=== PATIENT | male | born 1955 | race Caucasian/White ===

== ENCOUNTER 2021-08-01 19:44 | Emergency (ER) | payer MEDICARE ==
--- NOTE | 2021-08-01 23:43 | EDM.PDOC ---
ED HPI GENERAL MEDICAL PROBLEM - General Chief Complaint: Respiratory Problem Stated Complaint: COVID POSITIVE, COUGH, Time Seen by Provider: 08/01/21 22:27 Source of Information: Reports: Patient History Limitations: Reports: No Limitations - History of Present Illness INITIAL COMMENTS - FREE TEXT/NARRATIVE: But is a 65-year-old male presenting to the ED with concerns that he may have COVID-19. The patient did receive them a during a vaccine in December and January 2021. He received Moderna vaccination. He started having symptoms including headache, body aches, nasal congestion, cough and sore throat, and worsening shortness of breath over the last 3 to 4 days. He contacted his doctor who is in [place] who recommended that he get the Regeneron treatment for his COVID-19 if he is positive. The patient is susceptible to recurrent pneumonias and has a history of hyperlipidemia, hypertension, chronic anticoagulation with warfarin. We have no access to his medical records to be able to determine if there is other underlying history. Patient denies being a smoker. He has not lost his sense of taste or smell. He did run a fever earlier today but that has since subsided. The patient reports that several days ago he fell striking the left chest causing several ribs to become fractured. He has been taking Percocet to manage his pain. He was seen earlier today at the [facility] walk-in clinic where they did a Covid swab and a chest x-ray. They told him that his chest x-ray looked "cruddy". He does not know the results of the COVID-19 test. He is anxious to find out so that he can get the Regeneron as soon as possible as recommended by his doctor in [place]. - Related Data Allergies Allergy/AdvReac Type Severity Reaction Status Date / Time No Known Allergies Allergy Verified 08/01/21 20:29 Home Meds: Home Meds Azithromycin [Zithromax] 250 mg PO DAILY 08/01/21 [History] Dextroamphetamine/Amphetamine [Dextroamp-Amphet ER 20 mg Cap] 20 mg PO DAILY 08/01/21 [History] NIFEdipine [Nifedipine ER] 30 mg PO DAILY 08/01/21 [History] Rosuvastatin [Crestor] 10 mg PO DAILY 08/01/21 [History] Sertraline [Zoloft] 100 mg PO DAILY 08/01/21 [History] Warfarin [Coumadin] 3 mg PO DAILY 08/01/21 [History] oxyCODONE HCl/Acetaminophen [Oxycodone-Acetaminophen 5-325] 1 each PO Q6H 08/01 [History] Past Medical History Cardiovascular History: Reports: High Cholesterol Other Cardiovascular History: PE Respiratory History: Reports: PE, Pneumonia, Recurrent Musculoskeletal History: Reports: Arthritis, Fracture Psychiatric History: Reports: Depression Oncologic (Cancer) History: Reports: Basal Cell Carcinoma, Malignant Melanoma, Squamous Cell Carcinoma - Infectious Disease History Infectious Disease History: Reports: Chicken Pox, Measles, Mumps Social & Family History - Tobacco Use Tobacco Use Status *Q: Never Tobacco User - Caffeine Use Caffeine Use: Reports: Coffee - Alcohol Use Days Per Week of Alcohol Use: 7 Number of Drinks Per Day: 3 Total Drinks Per Week: 21 - Recreational Drug Use Recreational Drug Use: No ED ROS GENERAL - Review of Systems Review Of Systems: See Below Constitutional: Reports: Fever, Chills, Malaise, Fatigue HEENT: Reports: Rhinitis, Sinus Problem, Throat Pain Respiratory: Reports: Shortness of Breath, Cough, Sputum Cardiovascular: Reports: Dyspnea on Exertion Endocrine: Reports: No Symptoms GI/Abdominal: Reports: Nausea : Reports: No Symptoms Musculoskeletal: Reports: Muscle Pain (Body aches) Skin: Reports: No Symptoms Neurological: Reports: Headache Psychiatric: Reports: No Symptoms Hematologic/Lymphatic: Reports: No Symptoms Immunologic: Reports: No Symptoms ED EXAM, GENERAL - Physical Exam Exam: See Below Exam Limited By: No Limitations General Appearance: Alert, Anxious, Mild Distress Eye Exam: Left Eye: EOMI, PERRL Throat/Mouth: Normal Inspection, Normal Oropharynx, Normal Voice, No Airway Compromise Head: Normocephalic Neck: Normal Inspection, Supple, Non-Tender Respiratory/Chest: Decreased Breath Sounds (Mildly diminished breath sounds in the base secondary to splinting), Rhonchi (Scattered rhonchi bilaterally), Wheezing (Scant inspiratory and expiratory wheezes), Splinting, Other (Tenderness over the left lateral lower ribs without evidence for bruising) Cardiovascular: Normal Peripheral Pulses, Regular Rate, Rhythm, No Murmur Peripheral Pulses: 2+: Radial (L), Radial (R) GI/Abdominal: Normal Bowel Sounds, Soft, Non-Tender Extremities: Normal Inspection Neurological: Alert, Oriented, Normal Cognition, No Motor/Sensory Deficits Psychiatric: Anxious Skin Exam: Warm, Dry, Intact, Normal Color Course - Vital Signs Last Recorded V/S: Last Vital Signs Temp 35.9 C L 08/01/21 20:38 Pulse 65 08/01/21 23:26 Resp 16 08/01/21 23:26 BP 130/65 08/01/21 23:26 Pulse Ox 98 08/01/21 23:26 - Orders/Labs/Meds Orders: Active Orders 24 hr Category Date Time Status Chest 1V Frontal [CR] Stat Exams 08/01/21 22:41 Taken PROCALCITONIN [CHEM] Stat Lab 08/01/21 22:55 Received Labs: Laboratory Tests 08/01/21 08/01/21 08/01/21 Range/Units 22:00 22:55 22:55 WBC 7.6 (4.5-11.0) K/uL RBC 4.47 (4.30-5.90) M/uL Hgb 13.4 (12.0-15.0) g/dL Hct 40.7 (40.0-54.0) % MCV 91 (80-98) fL MCH 30 (27-31) pg MCHC 33 (32-36) % Plt Count 133 L (150-400) K/uL Neut % (Auto) 61.6 (36-66) % Lymph % (Auto) 18.9 L (24-44) % Castro % (Auto) 15.9 H (2-6) % Eos % (Auto) 2.9 (2-4) % Baso % (Auto) 0.7 (0-1) % D-Dimer, Quantitative (0.0-500.0) ng/mL Sodium 137 L (140-148) mmol/L Potassium 4.0 (3.6-5.2) mmol/L Chloride 99 L (100-108) mmol/L Carbon Dioxide 28 (21-32) mmol/L Anion Gap 14.0 (5.0-14.0) mmol/L BUN 14 (7-18) mg/dL Creatinine 1.0 (0.8-1.3) mg/dL Est Cr Clr Drug Dosing 78.68 mL/min Estimated GFR (MDRD) > 60 (>60) Glucose 98 (74-106) mg/dL Lactic Acid (0.4-2.0) mmol/L Calcium 8.4 L (8.5-10.1) mg/dL Ferritin 161 (8-388) ng/ml Total Bilirubin 0.7 (0.2-1.0) mg/dL AST 32 (15-37) U/L ALT 29 (12-78) U/L Alkaline Phosphatase 94 (46-116) U/L Lactate Dehydrogenase 150 (85-227) U/L C-Reactive Protein 3.08 H (0.0-0.3) mg/dL Total Protein 6.7 (6.4-8.2) g/dL Albumin 3.6 (3.4-5.0) g/dL Globulin 3.1 (2.3-3.5) g/dL Albumin/Globulin Ratio 1.2 (1.2-2.2) SARS-CoV-2 RNA (JOSE) Positive H (NEGATIVE) 08/01/21 08/01/21 Range/Units 22:55 22:55 WBC (4.5-11.0) K/uL RBC (4.30-5.90) M/uL Hgb (12.0-15.0) g/dL Hct (40.0-54.0) % MCV (80-98) fL MCH (27-31) pg MCHC (32-36) % Plt Count (150-400) K/uL Neut % (Auto) (36-66) % Lymph % (Auto) (24-44) % Castro % (Auto) (2-6) % Eos % (Auto) (2-4) % Baso % (Auto) (0-1) % D-Dimer, Quantitative 660.48 H (0.0-500.0) ng/mL Sodium (140-148) mmol/L Potassium (3.6-5.2) mmol/L Chloride (100-108) mmol/L Carbon Dioxide (21-32) mmol/L Anion Gap (5.0-14.0) mmol/L BUN (7-18) mg/dL Creatinine (0.8-1.3) mg/dL Est Cr Clr Drug Dosing mL/min Estimated GFR (MDRD) (>60) Glucose (74-106) mg/dL Lactic Acid 0.9 (0.4-2.0) mmol/L Calcium (8.5-10.1) mg/dL Ferritin (8-388) ng/ml Total Bilirubin (0.2-1.0) mg/dL AST (15-37) U/L ALT (12-78) U/L Alkaline Phosphatase (46-116) U/L Lactate Dehydrogenase (85-227) U/L C-Reactive Protein (0.0-0.3) mg/dL Total Protein (6.4-8.2) g/dL Albumin (3.4-5.0) g/dL Globulin (2.3-3.5) g/dL Albumin/Globulin Ratio (1.2-2.2) SARS-CoV-2 RNA (JOSE) (NEGATIVE) - Radiology Interpretation Free Text/Narrative:: I reviewed the portable x-ray of the chest that demonstrates scattered fluffy infiltrates consistent with Covid lung. There is no area of consolidation. There does appear to be a rib fracture on the left lateral eighth rib. There is splinted respirations with elevation of the diaphragm on the imaging. - Re-Assessments/Exams Free Text/Narrative Re-Assessment/Exam: 08/01/21 23:38 I reviewed bloods labs showing a normal leukocyte count at 7.6, hemoglobin 13.4, hematocrit of 40.7 and platelet count of 133,000. He is positive for COVID-19. His chest x-ray shows diffuse scattered infiltrates consistent with Covid lung. His vitals are stable and he was remaining above 90 % on room air so it does not appear that he requires hospitalization at this time. He is very interested in getting the Regeneron infusion so I have ordered this for him for tomorrow. We do have doses in-house to be able to do this tomorrow. 08/02/21 00:00 the comprehensive metabolic panel is essentially normal with a sodium 137, potassium 4.0, chloride 99, bicarbonate of 28, BUN of 14 with a c reatinine 1.0 and a glucose of 98. The AST and ALT are normal. Lactic acid is 0.9. D-dimer is elevated at 660. Ferritin is 161. LDH is 150 and C-reactive protein is modestly elevated at 3.0. This is all consistent with acute COVID- 19. I have put through the request for the Regeneron for the patient to receive it tomorrow. At this time, he suitable for discharge home. He should socially isolate to prevent further spread. Departure - Departure Time of Disposition: 00:01 Disposition: Home, Self-Care 01 Clinical Impression: COVID-19, Pneumonia due to COVID-19 virus - Discharge Information Instructions: COVID-19: What to Do If You Are Sick- [facility] (01/08/2021), COVID-19: How to Protect Yourself and Others - [facility] Referrals: PCP,None [Primary Care Provider] - Forms: ED Department Discharge Care Plan Goals: I have put short order in for the Regeneron monoclonal therapy. You will be contacted by somebody in the morning to schedule the time to return to receive that. They do that in room 14 in the ER. They will likely have you come into the ambulance bay to come into the ER to limit of COVID-19 exposure to others. Sepsis Event Note (ED) - Evaluation Sepsis Screening Result: No Definite Risk - Focused Exam Vital Signs: Vital Signs Temp Pulse Resp BP Pulse Ox 08/01/21 23:26 65 16 130/65 98 08/01/21 20:38 35.9 C L 83 16 129/67 98 08/01/21 20:21 35.9 C L 83 16 129/67 98 - Problem List & Annotations (1) COVID-19 SNOMED Code(s): 555647911 Code(s): U07.1 - COVID-19 Status: Acute Priority: High Current Visit: Yes (2) Pneumonia due to COVID-19 virus SNOMED Code(s): 195490198234267181 Code(s): U07.1 - COVID-19; J12.82 - PNEUMONIA DUE TO CORONAVIRUS DISEASE 2019 Status: Acute Priority: High Current Visit: Yes - Problem List Review Problem List Initiated/Reviewed/Updated: Yes - My Orders Last 24 Hours: My Active Orders 08/01/21 22:41 Chest 1V Frontal [CR] Stat 08/01/21 22:55 PROCALCITONIN [CHEM] Stat - Assessment/Plan Last 24 Hours: My Active Orders 08/01/21 22:41 Chest 1V Frontal [CR] Stat 08/01/21 22:55 PROCALCITONIN [CHEM] Stat
--- NOTE | 2021-08-04 09:50 | CR ---
CHEST: Portable 08/01/2021 at 11:24 PM CLINICAL HISTORY:Covid COMPARISON:None FINDINGS: Heart size and pulmonary vascularity are normal. There is some patchy density in the right mid and lower lung field. There is some streaky density in the left lung base. There is elevation left hemidiaphragm which is likely chronic. IMPRESSION: Mild patchy density in the right lower lung field may represent pneumonia or pneumonitis Patchy and streaky left lower lobe density may be some atelectasis and scarring If clinically relevant upright two-view chest recommended. CHEST: Portable 08/02/2021 at 7:28 PM CLINICAL HISTORY:Covid19 COMPARISON:08/01/2021 FINDINGS: There is persistent patchy density in both lung bases. There is mild generalized increase in interstitial markings. Heart size and pulmonary vascularity are normal. IMPRESSION: Bilateral infiltrates with a slight increase in the right lower lobe since prior study. This is suspect for pneumonia or pneumonitis
== END 2021-08-02 00:16 | disposition home or self-care (01) ==
LOC: JP.ED 19:44
DX: U07.1 COVID-19 (principal); J12.82 Pneumonia due to coronavirus disease 2019; E78.00 Pure hypercholesterolemia, unspecified; M19.90 Unspecified osteoarthritis, unspecified site; Z86.711 Personal history of pulmonary embolism; Z79.01 Long term (current) use of anticoagulants; Z79.899 Other long term (current) drug therapy
CPT/HCPCS: 36415; 71045; 80053; 82728; 83605; 83615; 84145; 85025; 85379; 86140; 99284; U0002

== ENCOUNTER 2021-08-02 17:37 | Inpatient (IN) | payer MEDICARE ==
--- NOTE | 2021-08-02 18:54 | EDM.PDOC ---
ED HPI GENERAL MEDICAL PROBLEM - General Chief Complaint: Respiratory Problem Stated Complaint: MED[facility] Time Seen by Provider: 08/02/21 18:09 Source of Information: Reports: Patient, EMS History Limitations: Reports: No Limitations - History of Present Illness INITIAL COMMENTS - FREE TEXT/NARRATIVE: But is a 65-year-old male who presents to the ED via EMS for increasing shortness of breath, body aches, rib pain, and increased thirst. The patient was seen in the ER last night where he was diagnosed with COVID-19. Had a very significant work-up and was scheduled for Regeneron monoclonal therapy today which she received at 1400 hrs. today. He was discharged from the ED after receiving the monoclonal therapy feeling well and within an hour prior to arrival to the ED started experiencing increasing symptoms of his COVID-19. He arrives via EMS writhing around in pain. He does have a rib fracture on the left lower chest that occurred 3 days ago from an injury. His work-up yesterday showed mild scattered infiltrates consistent with Covid lung. The patient does have a significant underlying lung pathology with frequent recurrent pneumonias and is followed by a decaler in [place] where he typically resides. Patient is 94% SPO2 on room air. He is very anxious and tachypneic. Trunk Pain Score (Numeric/FACES): 6 - Related Data Allergies Allergy/AdvReac Type Severity Reaction Status Date / Time No Known Allergies Allergy Verified 08/02/21 18:55 Home Meds: Home Meds Azithromycin [Zithromax] 250 mg PO DAILY 08/01/21 [History] Dextroamphetamine/Amphetamine [Dextroamp-Amphet ER 20 mg Cap] 20 mg PO DAILY 08/01/21 [History] NIFEdipine [Nifedipine ER] 30 mg PO DAILY 08/01/21 [History] Rosuvastatin [Crestor] 10 mg PO DAILY 08/01/21 [History] Sertraline [Zoloft] 100 mg PO DAILY 08/01/21 [History] Warfarin [Coumadin] 3 mg PO DAILY 08/01/21 [History] oxyCODONE HCl/Acetaminophen [Oxycodone-Acetaminophen 5-325] 1 each PO Q6H 08/01/21 [History] Past Medical History Cardiovascular History: Reports: High Cholesterol Other Cardiovascular History: PE Respiratory History: Reports: PE, Pneumonia, Recurrent Musculoskeletal History: Reports: Arthritis, Fracture Psychiatric History: Reports: Depression Oncologic (Cancer) History: Reports: Basal Cell Carcinoma, Malignant Melanoma, Squamous Cell Carcinoma - Infectious Disease History Infectious Disease History: Reports: Chicken Pox, Measles, Mumps Social & Family History - Caffeine Use Caffeine Use: Reports: Coffee ED ROS GENERAL - Review of Systems Review Of Systems: See Below Constitutional: Reports: Fever, Chills, Malaise, Weakness, Fatigue, Diaphoresis HEENT: Reports: Throat Pain, Other (Dry mouth) Respiratory: Reports: Shortness of Breath (Increased since he received his monoclonal therapy), Cough, Sputum Cardiovascular: Reports: Chest Pain (Secondary to rib fracture on the left lower lateral chest) Endocrine: Reports: Fatigue GI/Abdominal: Reports: Anorexia, Decreased Appetite : Reports: No Symptoms Musculoskeletal: Reports: Muscle Pain (Generalized body aches) Skin: Reports: No Symptoms Neurological: Reports: Headache Psychiatric: Reports: Anxiety Hematologic/Lymphatic: Reports: No Symptoms Immunologic: Reports: No Symptoms ED EXAM, GENERAL - Physical Exam Exam: See Below Exam Limited By: No Limitations General Appearance: Alert, Anxious, Severe Distress Eye Exam: Bilateral Eye: EOMI, PERRL Nose: Nasal Swelling, Nasal Drainage, Clear Rhinorrhea Throat/Mouth: Normal Oropharynx, Normal Voice, No Airway Compromise Head: Normocephalic Neck: Normal Inspection, Supple. No: Lymphadenopathy (R), Lymphadenopathy (L) Respiratory/Chest: Rhonchi (Coarse rhonchi bilateral lungs. ), Accessory Muscle Use, Splinting (Splinting respirations with extreme tenderness to palpation over the left lower lateral chest.), Other (Tachypnea) Cardiovascular: Normal Peripheral Pulses, Regular Rate, Rhythm, No Murmur Peripheral Pulses: 2+: Radial (L), Radial (R) GI/Abdominal: Normal Bowel Sounds, Soft, Non-Tender Extremities: Normal Inspection, Normal Range of Motion, No Pedal Edema Neurological: Alert, Oriented, Normal Cognition, No Motor/Sensory Deficits Psychiatric: Anxious Skin Exam: Warm, Normal Color, Diaphoretic Course - Vital Signs Last Recorded V/S: Last Vital Signs Temp 36.4 C 08/02/21 18:57 Pulse 108 H 08/02/21 18:57 Resp 24 H 08/02/21 18:57 BP 137/72 08/02/21 18:57 Pulse Ox 89 L 08/02/21 18:57 - Orders/Labs/Meds Orders: Active Orders 24 hr Category Date Time Status Nurse Communication: Isolation [RC] ASDIRECTED Care 08/02/21 19:22 Active Nurse Communication: Isolation [RC] ASDIRECTED Care 08/02/21 19:24 Active Positioning, Patient [RC] ASDIRECTED Care 08/02/21 19:21 Active Chest 1V Frontal [CR] Stat Exams 08/02/21 18:47 Ordered INR,PT,PROTHROMBIN TIME [COAG] Urgent Lab 08/02/21 19:38 Ordered Acetaminophen [TylenoL] Med 08/02/21 19:21 Active 650 mg PO Q4H PRN dexAMETHasone [Decadron] Med 08/02/21 19:30 Active 6 mg IVPUSH DAILY Isolation [COMM] Stat Oth 08/02/21 19:21 Ordered Isolation [COMM] Stat Oth 08/02/21 19:24 Ordered Medication Orders Acetaminophen (Acetaminophen 325 Mg Tab) 650 mg PO Q4H PRN PRN Reason: Fever Greater Than 101 Dexamethasone (Dexamethasone 4 Mg/Ml Sdv) 6 mg IVPUSH DAILY MIKEY Stop: 08/11/21 09:01 Labs: Laboratory Tests 08/02/21 08/02/21 08/02/21 Range/Units 19:04 19:04 19:04 WBC 8.3 (4.5-11.0) K/uL RBC 4.36 (4.30-5.90) M/uL Hgb 13.1 (12.0-15.0) g/dL Hct 39.9 L (40.0-54.0) % MCV 92 (80-98) fL MCH 30 (27-31) pg MCHC 33 (32-36) % Plt Count 100 L (150-400) K/uL Neut % (Auto) 82.4 H (36-66) % Lymph % (Auto) 6.8 L (24-44) % Shannon % (Auto) 9.2 H (2-6) % Eos % (Auto) 1.2 L (2-4) % Baso % (Auto) 0.4 (0-1) % D-Dimer, Quantitative 750.47 H (0.0-500.0) ng/mL Puncture Site ABG pH (7.350-7.450) ABG pCO2 (35.0-42.0) mmHg ABG pO2 (75.0-100.0) mmHg ABG HCO3 (22.0-26.0) mmol/L ABG Total CO2 (23.0-27.0) mmol/L ABG O2 Saturation (95.0-98.0) % ABG O2 Content (15.0-23.0) %vol ABG Base Excess mm/L ABG Hemoglobin (13.5-18.0) g/dL ABG Oxyhemoglobin % ABG Carboxyhemoglobin (0.0-1.6) % ABG Methemoglobin % Truong Test O2 Delivery Device Oxygen Flow Rate L Sodium 133 L (140-148) mmol/L Potassium 4.2 (3.6-5.2) mmol/L Chloride 97 L (100-108) mmol/L Carbon Dioxide 26 (21-32) mmol/L Anion Gap 14.2 H (5.0-14.0) mmol/L BUN 13 (7-18) mg/dL Creatinine 1.0 (0.8-1.3) mg/dL Est Cr Clr Drug Dosing 78.79 mL/min Estimated GFR (MDRD) > 60 (>60) Glucose 117 H (74-106) mg/dL Lactic Acid (0.4-2.0) mmol/L Calcium 8.3 L (8.5-10.1) mg/dL Ferritin 218 (8-388) ng/ml Total Bilirubin 1.2 H D (0.2-1.0) mg/dL AST 47 H (15-37) U/L ALT 38 (12-78) U/L Alkaline Phosphatase 102 (46-116) U/L Lactate Dehydrogenase 174 (85-227) U/L C-Reactive Protein 5.01 H (0.0-0.3) mg/dL Total Protein 6.8 (6.4-8.2) g/dL Albumin 3.6 (3.4-5.0) g/dL Globulin 3.2 (2.3-3.5) g/dL Albumin/Globulin Ratio 1.1 L (1.2-2.2) Amylase (25-115) U/L Lipase (73-393) U/L Procalcitonin ng/mL 08/02/21 08/02/21 08/02/21 Range/Units 19:04 19:04 19:21 WBC (4.5-11.0) K/uL RBC (4.30-5.90) M/uL Hgb (12.0-15.0) g/dL Hct (40.0-54.0) % MCV (80-98) fL MCH (27-31) pg MCHC (32-36) % Plt Count (150-400) K/uL Neut % (Auto) (36-66) % Lymph % (Auto) (24-44) % Shannon % (Auto) (2-6) % Eos % (Auto) (2-4) % Baso % (Auto) (0-1) % D-Dimer, Quantitative (0.0-500.0) ng/mL Puncture Site Rt brachial ABG pH 7.459 H (7.350-7.450) ABG pCO2 33.6 L (35.0-42.0) mmHg ABG pO2 60.5 L (75.0-100.0) mmHg ABG HCO3 23.5 (22.0-26.0) mmol/L ABG Total CO2 20.7 L (23.0-27.0) mmol/L ABG O2 Saturation 92.0 L (95.0-98.0) % ABG O2 Content 16.4 (15.0-23.0) %vol ABG Base Excess 0.6 mm/L ABG Hemoglobin 13.1 L (13.5-18.0) g/dL ABG Oxyhemoglobin 89.2 % ABG Carboxyhemoglobin 2.0 H (0.0-1.6) % ABG Methemoglobin 1.0 % Truong Test Not performed O2 Delivery Device Nasal cannula Oxygen Flow Rate 2.0 L Sodium (140-148) mmol/L Potassium (3.6-5.2) mmol/L Chloride (100-108) mmol/L Carbon Dioxide (21-32) mmol/L Anion Gap (5.0-14.0) mmol/L BUN (7-18) mg/dL Creatinine (0.8-1.3) mg/dL Est Cr Clr Drug Dosing mL/min Estimated GFR (MDRD) (>60) Glucose (74-106) mg/dL Lactic Acid 1.7 (0.4-2.0) mmol/L Calcium (8.5-10.1) mg/dL Ferritin (8-388) ng/ml Total Bilirubin (0.2-1.0) mg/dL AST (15-37) U/L ALT (12-78) U/L Alkaline Phosphatase (46-116) U/L Lactate Dehydrogenase (85-227) U/L C-Reactive Protein (0.0-0.3) mg/dL Total Protein (6.4-8.2) g/dL Albumin (3.4-5.0) g/dL Globulin (2.3-3.5) g/dL Albumin/Globulin Ratio (1.2-2.2) Amylase (25-115) U/L Lipase (73-393) U/L Procalcitonin 0.27 ng/mL 08/02/21 Range/Units 19:38 WBC (4.5-11.0) K/uL RBC (4.30-5.90) M/uL Hgb (12.0-15.0) g/dL Hct (40.0-54.0) % MCV (80-98) fL MCH (27-31) pg MCHC (32-36) % Plt Count (150-400) K/uL Neut % (Auto) (36-66) % Lymph % (Auto) (24-44) % Shannon % (Auto) (2-6) % Eos % (Auto) (2-4) % Baso % (Auto) (0-1) % D-Dimer, Quantitative (0.0-500.0) ng/mL Puncture Site ABG pH (7.350-7.450) ABG pCO2 (35.0-42.0) mmHg ABG pO2 (75.0-100.0) mmHg ABG HCO3 (22.0-26.0) mmol/L ABG Total CO2 (23.0-27.0) mmol/L ABG O2 Saturation (95.0-98.0) % ABG O2 Content (15.0-23.0) %vol ABG Base Excess mm/L ABG Hemoglobin (13.5-18.0) g/dL ABG Oxyhemoglobin % ABG Carboxyhemoglobin (0.0-1.6) % ABG Methemoglobin % Truong Test O2 Delivery Device Oxygen Flow Rate L Sodium (140-148) mmol/L Potassium (3.6-5.2) mmol/L Chloride (100-108) mmol/L Carbon Dioxide (21-32) mmol/L Anion Gap (5.0-14.0) mmol/L BUN (7-18) mg/dL Creatinine (0.8-1.3) mg/dL Est Cr Clr Drug Dosing mL/min Estimated GFR (MDRD) (>60) Glucose (74-106) mg/dL Lactic Acid (0.4-2.0) mmol/L Calcium (8.5-10.1) mg/dL Ferritin (8-388) ng/ml Total Bilirubin (0.2-1.0) mg/dL AST (15-37) U/L ALT (12-78) U/L Alkaline Phosphatase (46-116) U/L Lactate Dehydrogenase (85-227) U/L C-Reactive Protein (0.0-0.3) mg/dL Total Protein (6.4-8.2) g/dL Albumin (3.4-5.0) g/dL Globulin (2.3-3.5) g/dL Albumin/Globulin Ratio (1.2-2.2) Amylase 64 (25-115) U/L Lipase 111 (73-393) U/L Procalcitonin ng/mL Meds: Medications Generic Name Dose Route Start Last Admin Trade Name Freq PRN Reason Stop Dose Admin Acetaminophen 650 mg 08/02/21 19:21 Acetaminophen 325 Mg Tab PO Q4H PRN Fever Greater Than 101 Dexamethasone 6 mg 08/02/21 19:30 Dexamethasone 4 Mg/Ml Sdv IVPUSH 08/11/21 09:01 DAILY MIKEY Discontinued Medications Generic Name Dose Route Start Last Admin Trade Name Freq PRN Reason Stop Dose Admin Remdesivir 200 mg/ Sodium 250 mls @ 250 mls/hr 08/02/21 19:24 Chloride IV 08/02/21 19:25 ONETIME ONE Remdesivir Confirm 08/02/21 19:53 Remdesivir Administered 08/02/21 19:54 Dose 100 mls @ as directed .ROUTE .STK-MED ONE - Radiology Interpretation Free Text/Narrative:: I reviewed the one-view portable chest x-ray and compared it to the x-ray from yesterday. There is significant progression of the infiltrates in bilateral lungs. There also appears to be atelectasis at the left lung base secondary to splinted respirations due to the rib fracture of the eighth rib. - Re-Assessments/Exams Free Text/Narrative Re-Assessment/Exam: 08/02/21 19:55 reviewed the patient's labs now showing a [place] count of 8.3, hemoglobin of 13.1, hematocrit of 39.9 and a platelet count of 100,000. This is a significant decline in platelets when compared to yesterday. The comprehensive metabolic panel shows a sodium of 133, potassium 4.2, chloride of 97, bicarbonate of 26, BUN of 13 with a creatinine 1.0 and glucose of 117. The D-dimer is 750, lactate is 1.7, ferritin is 218, CRP is 5.01 and LDH is 174. This is compared to yesterday's number where the lactate is 1.3, ferritin was 25, CRP was 0.19, and LDH was 160. The patient is partially proned for respiratory support and started on oxygen as his SPO2 dropped into the mid to low 80s. Arterial blood gas on 2 L via nasal cannula shows a pH of 7.45, PCO2 of 33.6, PO2 of 60.5, and bicarbonate of 20.7. This is also a significant change even from earlier today when he received his Regeneron. I have discussed his case with Cathy Lazo CNP who is arranging admission of the patient. We initiated therapy with dexamethasone 6 mg IV and remdesivir 200 mg IV. Departure - Departure Time of Disposition: 19:58 Disposition: Admitted As Inpatient 64 Clinical Impression: COVID-19, Pneumonia due to COVID-19 virus, Hypoxia Fracture of rib of left side Qualifiers: Encounter type: subsequent encounter Rib fracture type: single rib Fracture type: closed Fracture healing: with routine healing Qualified Code(s): S22.32XD - Fracture of one rib, left side, subsequent encounter for fracture with routine healing - Discharge Information Referrals: PCP,None [Primary Care Provider] - Forms: ED Department Discharge Sepsis Event Note (ED) - Focused Exam Vital Signs: Vital Signs Temp Pulse Resp BP Pulse Ox 08/02/21 18:57 36.4 C 108 H 24 H 137/72 89 L - Problem List & Annotations (1) COVID-19 SNOMED Code(s): 785083865 Code(s): U07.1 - COVID-19 Status: Acute Priority: High Current Visit: Yes (2) Pneumonia due to COVID-19 virus SNOMED Code(s): 005183550385968105 Code(s): U07.1 - COVID-19; J12.82 - PNEUMONIA DUE TO CORONAVIRUS DISEASE 2019 Status: Acute Priority: High Current Visit: Yes (3) Fracture of rib of left side SNOMED Code(s): 50861855 Code(s): S22.32XA - FRACTURE OF ONE RIB, LEFT SIDE, INIT FOR CLOS FX Status: Acute Priority: Medium Current Visit: Yes Qualifiers: Encounter type: subsequent encounter Rib fracture type: single rib Fracture type: closed Fracture healing: with routine healing Qualified Code(s): S22.32XD - Fracture of one rib, left side, subsequent encounter for fracture with routine healing (4) Hypoxia SNOMED Code(s): 881174624 Code(s): R09.02 - HYPOXEMIA Status: Acute Priority: High Current Visit: Yes - Problem List Review Problem List Initiated/Reviewed/Updated: Yes - My Orders Last 24 Hours: My Active Orders 08/02/21 18:47 Chest 1V Frontal [CR] Stat 08/02/21 19:21 Positioning, Patient [RC] ASDIRECTED Acetaminophen [TylenoL] 650 mg PO Q4H PRN Isolation [COMM] Stat 08/02/21 19:22 Nurse Communication: Isolation [RC] ASDIRECTED 08/02/21 19:24 Nurse Communication: Isolation [RC] ASDIRECTED Isolation [COMM] Stat 08/02/21 19:30 dexAMETHasone [Decadron] 6 mg IVPUSH DAILY - Assessment/Plan Last 24 Hours: My Active Orders 08/02/21 18:47 Chest 1V Frontal [CR] Stat 08/02/21 19:21 Positioning, Patient [RC] ASDIRECTED Acetaminophen [TylenoL] 650 mg PO Q4H PRN Isolation [COMM] Stat 08/02/21 19:22 Nurse Communication: Isolation [RC] ASDIRECTED 08/02/21 19:24 Nurse Communication: Isolation [RC] ASDIRECTED Isolation [COMM] Stat 08/02/21 19:30 dexAMETHasone [Decadron] 6 mg IVPUSH DAILY
[2021-08-02] MEDS ORDERED: Acetaminophen 325 MG Tab PO PRN (19:21)
[2021-08-02] MEDS ORDERED: REMDESIVIR 200 MG in Sodium Chloride 0.9% 250 ML IV ONE (19:24)
[2021-08-02] MEDS ORDERED: Dexamethasone 4 MG/ML SDV IVPUSH SCH (19:30)
[2021-08-02] MEDS ORDERED: REMDESIVIR 100 MG ONE (19:53)
[2021-08-02] MEDS ORDERED: Sodium Chloride 0.9% 10 ML Syringe FLUSH PRN (20:30)
[2021-08-02] MEDS ORDERED: Lidocaine 5% 700 MG Patch TRDERM SCH (20:45)
[2021-08-02] MEDS ORDERED: Doxycycline 100 MG in Sodium Chloride 0.9% 100 ML IV SCH (20:45)
[2021-08-02] MEDS: Acetaminophen/oxyCODONE 325-5 MG Tab PO SCH (22:11)
--- NOTE | 2021-08-03 | PCM.HP.2 ---
H&P History of Present Illness - General Date of Service: 08/02/21 Admit Problem/Dx: Admission Diagnosis/Problem Admission Diagnosis/Problem Pneumonia due to infectious organism Source of Information: Patient, EMS Notes Reviewed, Provider, RN History Limitations: Reports: No Limitations - History of Present Illness Initial Comments - Free Text/Narative: copy from ER note 08-02-2021 INITIAL COMMENTS - FREE TEXT/NARRATIVE: But is a 65-year-old male who presents to the ED via EMS for increasing shortness of breath, body aches, rib pain, and increased thirst. The patient was seen in the ER last night where he was diagnosed with COVID-19. Had a very significant work-up and was scheduled for Regeneron monoclonal therapy today which she received at 1400 hrs. today. He was discharged from the ED after receiving the monoclonal therapy feeling well and within an hour prior to arrival to the ED started experiencing increasing symptoms of his COVID-19. He arrives via EMS writhing around in pain. He does have a rib fracture on the left lower chest that occurred 3 days ago from an injury. His work-up yesterday showed mild scattered infiltrates consistent with Covid lung. The patient does have a significant underlying lung pathology with frequent recurrent pneumonias and is followed by a doper operator in [place] where he typically resides. Patient is 94% SPO2 on room air. He is very anxious and tachypneic. Trunk Onset of Symptoms: Reports: Gradual Duration of Symptoms: Reports: Day(s): (sick with Covid 19 symptoms for 4 days.), Getting Worse Location: Reports: Generalized Quality: Reports: Sharp (right rib from injury 3 days ago), Other (shortness of breath, weakness) Severity: Moderate Improves with: Reports: Medication, Rest Worsens with: Reports: Movement (rib pain) Associated Symptoms: Reports: Cough, Fever/Chills, Loss of Appetite, Shortness of Breath, Weakness Trunk Pain Score (Numeric/FACES): 6 - Related Data Allergies/Adverse Reactions: Allergies Allergy/AdvReac Type Severity Reaction Status Date / Time No Known Allergies Allergy Verified 08/02/21 18:55 Home Medications: Home Meds Azithromycin [Zithromax] 250 mg PO DAILY 08/01/21 [History] Dextroamphetamine/Amphetamine [Dextroamp-Amphet ER 20 mg Cap] 20 mg PO DAILY 06/14 [History] NIFEdipine [Nifedipine ER] 30 mg PO DAILY 08/01/21 [History] Rosuvastatin [Crestor] 10 mg PO DAILY 08/01/21 [History] Sertraline [Zoloft] 100 mg PO DAILY 08/01/21 [History] Warfarin [Coumadin] 3 mg PO DAILY 08/01/21 [History] oxyCODONE HCl/Acetaminophen [Oxycodone-Acetaminophen 5-325] 1 each PO Q6H 08/01/21 [History] Past Medical History Cardiovascular History: Reports: High Cholesterol Other Cardiovascular History: PE Respiratory History: Reports: PE, Pneumonia, Recurrent Musculoskeletal History: Reports: Arthritis, Fracture Psychiatric History: Reports: Depression Oncologic (Cancer) History: Reports: Basal Cell Carcinoma, Malignant Melanoma, Squamous Cell Carcinoma - Infectious Disease History Infectious Disease History: Reports: Chicken Pox, Measles, Mumps Social & Family History - Tobacco Use Tobacco Use Status *Q: Current Some Day Tobacco User Years of Tobacco use: 1 Packs/Tins Daily: 0.2 - Caffeine Use Caffeine Use: Reports: Coffee - Alcohol Use Days Per Week of Alcohol Use: 7 Number of Drinks Per Day: 3 Total Drinks Per Week: 21 - Recreational Drug Use Recreational Drug Use: No - Living Situation & Occupation Living situation: Reports: , with Family (lives with Effie in [place], has a cabin in the area, 3 Sons, 3 In-laws, 5 Grandchildren.) H&P Review of Systems - Review of Systems: Review Of Systems: See Below General: Reports: Fever, Chills, Malaise, Weakness, Fatigue, Decreased Appetite HEENT: Reports: Rhinitis, Post Nasal Drip Pulmonary: Reports: Shortness of Breath, Pleuritic Chest Pain (due to right rib fracture- injury 3 days ago), Cough Cardiovascular: Reports: Dyspnea on Exertion, Orthopnea, Edema Gastrointestinal: Reports: Anorexia, Decreased Appetite Genitourinary: Reports: No Symptoms Musculoskeletal: Reports: Muscle Pain, Other (right chest wall pain -3 days ago rt fx rib) Skin: Reports: No Symptoms Psychiatric: Reports: No Symptoms Neurological: Reports: No Symptoms Hematologic/Lymphatic: Reports: No Symptoms Immunologic: Reports: No Symptoms Exam - Exam Exam: See Below - Vital Signs Vital Signs: Last Vital Signs Temp 98.9 F 08/02/21 21:27 Pulse 100 08/02/21 21:27 Resp 16 08/02/21 21:27 BP 146/68 H 08/02/21 21:27 Pulse Ox 94 L 08/02/21 21:37 Weight: 191 lb 4.8 oz - Exam Quality Assessment: Supplemental Oxygen, DVT Prophylaxis General: Alert, Oriented, Cooperative, Other (no distress noted due to medications given in ER) HEENT: PERRLA, Hearing Intact, Mucosa Moist & [place], Nares Patent, Normal Nasal Septum, Posterior Pharynx Clear, Conjunctiva Clear, EOMI, EACs Clear, TMs Clear Neck: Supple, Trachea Midline, 2 Lungs: Normal Respiratory Effort, Decreased Breath Sounds, Rhonchi (bilateral) Cardiovascular: Regular Rate, Regular Rhythm, Normal S1, Normal S2 GI/Abdominal Exam: Normal Bowel Sounds, Soft, Non-Tender, No Organomegaly, No Distention, No Abnormal Bruit, No Mass, Pelvis Stable (Male) Exam: Deferred Rectal (Males) Exam: Deferred Back Exam: Normal Inspection, Full Range of Motion, Other (right lateral chest wall pain from rib fracture) Extremities: Normal Range of Motion, Non-Tender, Pedal Edema Peripheral Pulses: 2+: Brachial (R), Radial (L) Skin: Warm, Dry Neurological: Strength Equal Bilateral, Normal Speech, Normal Tone Neuro Extensive - Mental Status: Alert, Oriented x3, Normal Mood/Affect, Normal Cognition, Memory Intact Neuro Extensive - Motor, Sensory, Reflexes: Normal Reflexes Psychiatric: Alert, Normal Affect, Normal Mood - Patient Data Lab Results Last 24 hrs: Laboratory Results - last 24 hr 08/02/21 08/02/21 08/02/21 Range/Units 19:04 19:04 19:04 WBC 8.3 (4.5-11.0) K/uL RBC 4.36 (4.30-5.90) M/uL Hgb 13.1 (12.0-15.0) g/dL Hct 39.9 L (40.0-54.0) % MCV 92 (80-98) fL MCH 30 (27-31) pg MCHC 33 (32-36) % Plt Count 100 L (150-400) K/uL Neut % (Auto) 82.4 H (36-66) % Lymph % (Auto) 6.8 L (24-44) % Bucks % (Auto) 9.2 H (2-6) % Eos % (Auto) 1.2 L (2-4) % Baso % (Auto) 0.4 (0-1) % PT (9.2-10.6) sec INR D-Dimer, Quantitative 750.47 H (0.0-500.0) ng/mL Puncture Site ABG pH (7.350-7.450) ABG pCO2 (35.0-42.0) mmHg ABG pO2 (75.0-100.0) mmHg ABG HCO3 (22.0-26.0) mmol/L ABG Total CO2 (23.0-27.0) mmol/L ABG O2 Saturation (95.0-98.0) % ABG O2 Content (15.0-23.0) %vol ABG Base Excess mm/L ABG Hemoglobin (13.5-18.0) g/dL ABG Oxyhemoglobin % ABG Carboxyhemoglobin (0.0-1.6) % ABG Methemoglobin % Truong Test O2 Delivery Device Oxygen Flow Rate L Sodium 133 L (140-148) mmol/L Potassium 4.2 (3.6-5.2) mmol/L Chloride 97 L (100-108) mmol/L Carbon Dioxide 26 (21-32) mmol/L Anion Gap 14.2 H (5.0-14.0) mmol/L BUN 13 (7-18) mg/dL Creatinine 1.0 (0.8-1.3) mg/dL Est Cr Clr Drug Dosing 78.79 mL/min Estimated GFR (MDRD) > 60 (>60) Glucose 117 H (74-106) mg/dL Lactic Acid (0.4-2.0) mmol/L Calcium 8.3 L (8.5-10.1) mg/dL Ferritin 218 (8-388) ng/ml Total Bilirubin 1.2 H D (0.2-1.0) mg/dL AST 47 H (15-37) U/L ALT 38 (12-78) U/L Alkaline Phosphatase 102 (46-116) U/L Lactate Dehydrogenase 174 (85-227) U/L C-Reactive Protein 5.01 H (0.0-0.3) mg/dL Total Protein 6.8 (6.4-8.2) g/dL Albumin 3.6 (3.4-5.0) g/dL Globulin 3.2 (2.3-3.5) g/dL Albumin/Globulin Ratio 1.1 L (1.2-2.2) Amylase (25-115) U/L Lipase (73-393) U/L Procalcitonin ng/mL 08/02/21 08/02/21 08/02/21 Range/Units 19:04 19:04 19:21 WBC (4.5-11.0) K/uL RBC (4.30-5.90) M/uL Hgb (12.0-15.0) g/dL Hct (40.0-54.0) % MCV (80-98) fL MCH (27-31) pg MCHC (32-36) % Plt Count (150-400) K/uL Neut % (Auto) (36-66) % Lymph % (Auto) (24-44) % Bucks % (Auto) (2-6) % Eos % (Auto) (2-4) % Baso % (Auto) (0-1) % PT (9.2-10.6) sec INR D-Dimer, Quantitative (0.0-500.0) ng/mL Puncture Site Rt brachial ABG pH 7.459 H (7.350-7.450) ABG pCO2 33.6 L (35.0-42.0) mmHg ABG pO2 60.5 L (75.0-100.0) mmHg ABG HCO3 23.5 (22.0-26.0) mmol/L ABG Total CO2 20.7 L (23.0-27.0) mmol/L ABG O2 Saturation 92.0 L (95.0-98.0) % ABG O2 Content 16.4 (15.0-23.0) %vol ABG Base Excess 0.6 mm/L ABG Hemoglobin 13.1 L (13.5-18.0) g/dL ABG Oxyhemoglobin 89.2 % ABG Carboxyhemoglobin 2.0 H (0.0-1.6) % ABG Methemoglobin 1.0 % Troung Test Not performed O2 Delivery Device Nasal cannula Oxygen Flow Rate 2.0 L Sodium (140-148) mmol/L Potassium (3.6-5.2) mmol/L Chloride (100-108) mmol/L Carbon Dioxide (21-32) mmol/L Anion Gap (5.0-14.0) mmol/L BUN (7-18) mg/dL Creatinine (0.8-1.3) mg/dL Est Cr Clr Drug Dosing mL/min Estimated GFR (MDRD) (>60) Glucose (74-106) mg/dL Lactic Acid 1.7 (0.4-2.0) mmol/L Calcium (8.5-10.1) mg/dL Ferritin (8-388) ng/ml Total Bilirubin (0.2-1.0) mg/dL AST (15-37) U/L ALT (12-78) U/L Alkaline Phosphatase (46-116) U/L Lactate Dehydrogenase (85-227) U/L C-Reactive Protein (0.0-0.3) mg/dL Total Protein (6.4-8.2) g/dL Albumin (3.4-5.0) g/dL Globulin (2.3-3.5) g/dL Albumin/Globulin Ratio (1.2-2.2) Amylase (25-115) U/L Lipase (73-393) U/L Procalcitonin 0.27 ng/mL 08/02/21 08/02/21 Range/Units 19:38 19:38 WBC (4.5-11.0) K/uL RBC (4.30-5.90) M/uL Hgb (12.0-15.0) g/dL Hct (40.0-54.0) % MCV (80-98) fL MCH (27-31) pg MCHC (32-36) % Plt Count (150-400) K/uL Neut % (Auto) (36-66) % Lymph % (Auto) (24-44) % Bucks % (Auto) (2-6) % Eos % (Auto) (2-4) % Baso % (Auto) (0-1) % PT 25.8 H (9.2-10.6) sec INR 2.6 D-Dimer, Quantitative (0.0-500.0) ng/mL Puncture Site ABG pH (7.350-7.450) ABG pCO2 (35.0-42.0) mmHg ABG pO2 (75.0-100.0) mmHg ABG HCO3 (22.0-26.0) mmol/L ABG Total CO2 (23.0-27.0) mmol/L ABG O2 Saturation (95.0-98.0) % ABG O2 Content (15.0-23.0) %vol ABG Base Excess mm/L ABG Hemoglobin (13.5-18.0) g/dL ABG Oxyhemoglobin % ABG Carboxyhemoglobin (0.0-1.6) % ABG Methemoglobin % Truong Test O2 Delivery Device Oxygen Flow Rate L Sodium (140-148) mmol/L Potassium (3.6-5.2) mmol/L Chloride (100-108) mmol/L Carbon Dioxide (21-32) mmol/L Anion Gap (5.0-14.0) mmol/L BUN (7-18) mg/dL Creatinine (0.8-1.3) mg/dL Est Cr Clr Drug Dosing mL/min Estimated GFR (MDRD) (>60) Glucose (74-106) mg/dL Lactic Acid (0.4-2.0) mmol/L Calcium (8.5-10.1) mg/dL Ferritin (8-388) ng/ml Total Bilirubin (0.2-1.0) mg/dL AST (15-37) U/L ALT (12-78) U/L Alkaline Phosphatase (46-116) U/L Lactate Dehydrogenase (85-227) U/L C-Reactive Protein (0.0-0.3) mg/dL Total Protein (6.4-8.2) g/dL Albumin (3.4-5.0) g/dL Globulin (2.3-3.5) g/dL Albumin/Globulin Ratio (1.2-2.2) Amylase 64 (25-115) U/L Lipase 111 (73-393) U/L Procalcitonin ng/mL Result Diagrams: 08/02/21 19:04 08/02/21 19:04 Sepsis Event Note - Evaluation Sepsis Screening Result: No Definite Risk - Focused Exam Vital Signs: Vital Signs Temp Pulse Resp BP Pulse Ox 08/02/21 21:37 94 L 08/02/21 21:27 98.9 F 100 16 146/68 H 96 08/02/21 20:04 103 H 22 H 108/71 95 08/02/21 18:57 97.6 F 108 H 24 H 137/72 89 L - Problem List (1) COVID-19 SNOMED Code(s): 607505056 ICD Code: U07.1 - COVID-19 Status: Acute Priority: High Current Visit: Yes (2) Fracture of rib of left side SNOMED Code(s): 05362524 ICD Code: S22.32XA - FRACTURE OF ONE RIB, LEFT SIDE, INIT FOR CLOS FX Status: Acute Priority: Medium Current Visit: Yes Qualifiers: Encounter type: subsequent encounter Rib fracture type: single rib Fracture type: closed Fracture healing: with routine healing Qualified Code (s): S22.32XD - Fracture of one rib, left side, subsequent encounter for fracture with routine healing (3) Hypoxia SNOMED Code(s): 579629501 ICD Code: R09.02 - HYPOXEMIA Status: Acute Priority: High Current Visit: Yes (4) Pneumonia due to COVID-19 virus SNOMED Code(s): 600467118005514101 ICD Code: U07.1 - COVID-19; J12.82 - PNEUMONIA DUE TO CORONAVIRUS DISEASE 2019 Status: Acute Priority: High Current Visit: Yes (5) Cardiovascular disease Status: Acute Current Visit: Yes (6) History of pulmonary embolism SNOMED Code(s): 480642481 ICD Code: Z86.711 - PERSONAL HISTORY OF PULMONARY EMBOLISM Status: Acute Current Visit: Yes Problem List Initiated/Reviewed/Updated: Yes Orders Last 24hrs: Active Orders 24 hr Category Date Time Status Bedrest Bathroom Privileges [RC] ASDIRECTED Care 08/02/21 20:30 Active Cardiac Monitoring [RC] CONTINUOUS Care 08/02/21 20:33 Active Intake and Output [RC] QSHIFT Care 08/02/21 20:33 Active Notify Provider Vital Signs [RC] ASDIRECTED Care 08/02/21 20:33 Active Oxygen Therapy [RC] PRN Care 08/02/21 20:32 Active Positioning, Patient [RC] ASDIRECTED Care 08/02/21 19:21 Active Pulse Oximetry [RC] CONTINUOUS Care 08/02/21 20:33 Active Vital Signs [RC] Q4H Care 08/02/21 20:32 Active Regular Diet [DIET] Diet 08/02/21 Dinner Active Chest 1V Frontal [CR] Stat Exams 08/02/21 18:47 Taken C-REACTIVE PROTEIN [CHEM] AM Lab 08/03/21 05:11 Ordered CBC WITH AUTO DIFF [HEME] AM Lab 08/03/21 05:11 Ordered COMPREHENSIVE METABOLIC PN,CMP [CHEM] AM Lab 08/03/21 05:11 Ordered CULTURE BLOOD [BC] Urgent Lab 08/02/21 20:30 Received CULTURE BLOOD [BC] Urgent Lab 08/02/21 20:43 Received INR,PT,PROTHROMBIN TIME [COAG] AM Lab 08/03/21 05:11 Ordered UA W/MICROSCOPIC [URIN] Urgent Lab 08/02/21 23:41 Received Acetaminophen [TylenoL] Med 08/02/21 19:21 Active 650 mg PO Q4H PRN Acetaminophen/oxyCODONE [Percocet 325-5 MG] Med 08/02/21 20:45 Active 1 tab PO Q6H Doxycycline [Vibramycin] 100 mg Med 08/02/21 20:45 Active Sodium Chloride 0.9% [Normal Saline] 100 ml IV Q12H Lidocaine 5% [Lidoderm 5%] Med 08/02/21 20:45 Active 700 mg TRDERM Q24H NIFEdipine [Procardia XL] Med 08/03/21 09:00 Active 30 mg PO DAILY Remdesivir 100 mg Med 08/03/21 20:00 Active Sodium Chloride 0.9% [Normal Saline] 100 ml IV Q24H Rosuvastatin [Crestor] Med 08/03/21 09:00 Active 10 mg PO DAILY Sertraline [Zoloft] Med 08/03/21 09:00 Active 100 mg PO DAILY Sodium Chloride 0.9% [Saline Flush] Med 08/02/21 20:30 Active 10 ml FLUSH ASDIRECTED PRN Warfarin [Coumadin] Med 08/03/21 13:00 Active 3 mg PO DAILY@1300 dexAMETHasone Med 08/03/21 09:00 Active 6 mg PO DAILY dexAMETHasone [Decadron] Med 08/02/21 19:30 Active 6 mg IVPUSH DAILY Blood Culture x2 Reflex Set [OM.PC] Urgent Oth 08/02/21 20:21 Ordered Isolation [COMM] Routine Oth 08/02/21 20:44 Ordered Isolation [COMM] Stat Oth 08/02/21 19:21 Ordered Isolation [COMM] Stat Oth 08/02/21 19:24 Ordered Saline Lock Insert [OM.PC] Routine Oth 08/02/21 20:30 Ordered Resuscitation Status Routine Resus Stat 08/02/21 20:30 Ordered Medication Orders Acetaminophen (Acetaminophen 325 Mg Tab) 650 mg PO Q4H PRN PRN Reason: Fever Greater Than 101 Dexamethasone (Dexamethasone 4 Mg/Ml Sdv) 6 mg IVPUSH DAILY REPLACED BY [facility] Stop: 08/11/21 09:01 Last Admin: 08/02/21 20:04 Dose: 6 mg Documented by: ANIKET Dexamethasone (Dexamethasone 2 Mg Tab) 6 mg PO DAILY REPLACED BY [facility] Doxycycline Hyclate 100 mg/ (Sodium Chloride) 100 mls @ 100 mls/hr IV Q12H REPLACED BY [facility] Last Admin: 08/02/21 22:12 Dose: 100 mls/hr Documented by: LUIS ENRIQUE Remdesivir 100 mg/ Sodium (Chloride) 100 mls @ 100 mls/hr IV Q24H REPLACED BY [facility] Stop: 08/06/21 20:59 Lidocaine (Lidocaine 5% 700 Mg Patch) 700 mg TRDERM Q24H REPLACED BY [facility] Last Admin: 08/02/21 22:11 Dose: Not Given Documented by: LUIS ENRIQUE Nifedipine (Nifedipine 30 Mg Tab.Er) 30 mg PO DAILY REPLACED BY [facility] Oxycodone/Acetaminophen (Acetaminophen/Oxycodone 325-5 Mg Tab) 1 tab PO Q6H REPLACED BY [facility] Last Admin: 08/02/21 22:11 Dose: 1 tab Documented by: LUIS ENRIQUE Rosuvastatin Calcium (Rosuvastatin 10 Mg Tab) 10 mg PO DAILY REPLACED BY [facility] Sertraline HCl (Sertraline 50 Mg Tab) 100 mg PO DAILY REPLACED BY [facility] Sodium Chloride (Sodium Chloride 0.9% 10 Ml Syringe) 10 ml FLUSH ASDIRECTED PRN PRN Reason: Keep Vein Open Warfarin Sodium (Warfarin 1 Mg Tab) 3 mg PO DAILY@1300 REPLACED BY [facility] Assessment/Plan Comment:: ASSESSMENT AND PLAN - COVID-19 pneumonia-complicated hypoxia, cough, lack of appetite. vital signs 97.6-108-24 B/P 134/73 O2 sat 89% room air. -Covid precautions and isolation -Prone ventilation as possible -Dexamethasone 6 mg po daily -Coumadin 3 mg. po daily -Albuterol inhaler 2 puffs every 4 hours as needed for shortness of breath -IV Remdesivir x5 days -oxygen therapy to keep oxygen saturation >95% -Repeat labs including CRP and D-dimer in the morning CARDIOVASCULAR DISEASE -continue Crestor 10 mg po daily -Nifedipine ER 30 mg po daily -monitor blood pressure every shift. RIB FRACTURE -Hydrocodone 5-325 mg po every 4 to 6 hours as needed for pain -Lidocaine patch for comfort HISTORY OF PE - report history of PE about 20 years ago- Coumadin daily. Follow by Pulmonology in [place]. -continue Coumadin 3 mg daily MAINTENANCE ISSUES -DVT prophylaxis - Coumadin 3 mg daily -GI prophylaxis; not indicated -[place] catheter; not indicated -Nutrition - regular diet -Nicotine dependence; not required CODE STATUS-FULL CODE ADMISSION STATUS-patient will be admitted to inpatient status, expect at least a 2 night hospital stay for evaluation and management of problems as outlined solange sterling. At the time of this admission I do not reasonably expected evaluation and management of this problem will require more than a 96 hour hospital stay. DISPOSITION-anticipate discharge to home after the hospital stay. Primary care physician - [facility] - Jean-Claude Blake M.D. - Mortality Measure Prognosis:: Good
[2021-08-03] MEDS ORDERED: Albuterol 8 GM Inhaler INH PRN (03:27)
[2021-08-03] MEDS ORDERED: Albuterol/Ipratropium 4 GM Inhalation Spray INH PRN (03:27)
[2021-08-03] MEDS: Acetaminophen/oxyCODONE 325-5 MG Tab PO SCH ×2 (03:34→09:00)
[2021-08-03] MEDS: Lidocaine 5% 700 MG Patch TRDERM SCH (08:59)
[2021-08-03] MEDS: Sertraline 50 MG Tab PO SCH (08:59)
[2021-08-03] MEDS: NIFEdipine 30 MG Tab.ER PO SCH (08:59)
[2021-08-03] MEDS: Rosuvastatin 10 MG Tab PO SCH (08:59)
[2021-08-03] MEDS ORDERED: Doxycycline 100 MG in Sodium Chloride 0.9% 100 ML IV SCH (09:00)
[2021-08-03] MEDS ORDERED: Dexamethasone 2 MG Tab PO SCH ×2 (09:00→20:00)
--- NOTE | 2021-08-03 11:57 | PCM.PN ---
- General Info Date of Service: 08/03/21 Subjective Update: No acute events overnight. Patient feels much better today. He has a loose cough. When he does cough it creates significant pain in the left side of his chest where he has a rib fracture. He has been up and walking around and does get dyspneic with activity. He was off oxygen this morning and has low normal oxygen saturations at rest but does desaturate with any activity. Appetite has been good. His D-dimer and CRP have arisen since admission. Functional Status: Reports: Pain Controlled, Tolerating Diet - Review of Systems Pulmonary: Reports: Shortness of Breath, Cough Cardiovascular: Reports: Other (chest pain with coughing ) - Patient Data Vitals - Most Recent: Last Vital Signs Temp 36.7 C 08/03/21 10:05 Pulse 75 08/03/21 10:05 Resp 18 08/03/21 10:05 BP 108/47 L 08/03/21 10:05 Pulse Ox 96 08/03/21 10:05 Weight - Most Recent: 86.772 kg I&O - Last 24 Hours: Intake & Output 08/02/21 08/03/21 08/03/21 22:59 06:59 14:59 Intake Total 700 Output Total 600 400 Balance -600 300 Lab Results Last 24 Hours: Laboratory Results - last 24 hr 08/02/21 08/02/21 08/02/21 Range/Units 19:04 19:04 19:04 WBC 8.3 (4.5-11.0) K/uL RBC 4.36 (4.30-5.90) M/uL Hgb 13.1 (12.0-15.0) g/dL Hct 39.9 L (40.0-54.0) % MCV 92 (80-98) fL MCH 30 (27-31) pg MCHC 33 (32-36) % Plt Count 100 L (150-400) K/uL Neut % (Auto) 82.4 H (36-66) % Lymph % (Auto) 6.8 L (24-44) % [place] % (Auto) 9.2 H (2-6) % Eos % (Auto) 1.2 L (2-4) % Baso % (Auto) 0.4 (0-1) % PT (9.2-10.6) sec INR D-Dimer, Quantitative 750.47 H (0.0-500.0) ng/mL Puncture Site ABG pH (7.350-7.450) ABG pCO2 (35.0-42.0) mmHg ABG pO2 (75.0-100.0) mmHg ABG HCO3 (22.0-26.0) mmol/L ABG Total CO2 (23.0-27.0) mmol/L ABG O2 Saturation (95.0-98.0) % ABG O2 Content (15.0-23.0) %vol ABG Base Excess mm/L ABG Hemoglobin (13.5-18.0) g/dL ABG Oxyhemoglobin % ABG Carboxyhemoglobin (0.0-1.6) % ABG Methemoglobin % Truong Test O2 Delivery Device Oxygen Flow Rate L Sodium 133 L (140-148) mmol/L Potassium 4.2 (3.6-5.2) mmol/L Chloride 97 L (100-108) mmol/L Carbon Dioxide 26 (21-32) mmol/L Anion Gap 14.2 H (5.0-14.0) mmol/L BUN 13 (7-18) mg/dL Creatinine 1.0 (0.8-1.3) mg/dL Est Cr Clr Drug Dosing 78.79 mL/min Estimated GFR (MDRD) > 60 (>60) Glucose 117 H (74-106) mg/dL Lactic Acid (0.4-2.0) mmol/L Calcium 8.3 L (8.5-10.1) mg/dL Ferritin 218 (8-388) ng/ml Total Bilirubin 1.2 H D (0.2-1.0) mg/dL AST 47 H (15-37) U/L ALT 38 (12-78) U/L Alkaline Phosphatase 102 (46-116) U/L Lactate Dehydrogenase 174 (85-227) U/L C-Reactive Protein 5.01 H (0.0-0.3) mg/dL Total Protein 6.8 (6.4-8.2) g/dL Albumin 3.6 (3.4-5.0) g/dL Globulin 3.2 (2.3-3.5) g/dL Albumin/Globulin Ratio 1.1 L (1.2-2.2) Amylase (25-115) U/L Lipase (73-393) U/L Procalcitonin ng/mL Urine Color (YELLOW) Urine Appearance (CLEAR) Urine pH (5.0-8.0) Ur Specific [place] (1.008-1.030) Urine Protein (NEGATIVE) mg/dL Urine Glucose (UA) (NEGATIVE) mg/dL Urine Ketones (NEGATIVE) mg/dL Urine Occult Blood (NEGATIVE) Urine Nitrite (NEGATIVE) Urine Bilirubin (NEGATIVE) Urine Urobilinogen (0.2-1.0) EU/dL Ur Leukocyte Esterase (NEGATIVE) Urine RBC (0-5) Urine WBC (0-5) Ur Epithelial Cells Amorphous Sediment Urine Bacteria Urine Mucus 08/02/21 08/02/21 08/02/21 Range/Units 19:04 19:04 19:21 WBC (4.5-11.0) K/uL RBC (4.30-5.90) M/uL Hgb (12.0-15.0) g/dL Hct (40.0-54.0) % MCV (80-98) fL MCH (27-31) pg MCHC (32-36) % Plt Count (150-400) K/uL Neut % (Auto) (36-66) % Lymph % (Auto) (24-44) % [place] % (Auto) (2-6) % Eos % (Auto) (2-4) % Baso % (Auto) (0-1) % PT (9.2-10.6) sec INR D-Dimer, Quantitative (0.0-500.0) ng/mL Puncture Site Rt brachial ABG pH 7.459 H (7.350-7.450) ABG pCO2 33.6 L (35.0-42.0) mmHg ABG pO2 60.5 L (75.0-100.0) mmHg ABG HCO3 23.5 (22.0-26.0) mmol/L ABG Total CO2 20.7 L (23.0-27.0) mmol/L ABG O2 Saturation 92.0 L (95.0-98.0) % ABG O2 Content 16.4 (15.0-23.0) %vol ABG Base Excess 0.6 mm/L ABG Hemoglobin 13.1 L (13.5-18.0) g/dL ABG Oxyhemoglobin 89.2 % ABG Carboxyhemoglobin 2.0 H (0.0-1.6) % ABG Methemoglobin 1.0 % Truong Test Not performed O2 Delivery Device Nasal cannula Oxygen Flow Rate 2.0 L Sodium (140-148) mmol/L Potassium (3.6-5.2) mmol/L Chloride (100-108) mmol/L Carbon Dioxide (21-32) mmol/L Anion Gap (5.0-14.0) mmol/L BUN (7-18) mg/dL Creatinine (0.8-1.3) mg/dL Est Cr Clr Drug Dosing mL/min Estimated GFR (MDRD) (>60) Glucose (74-106) mg/dL Lactic Acid 1.7 (0.4-2.0) mmol/L Calcium (8.5-10.1) mg/dL Ferritin (8-388) ng/ml Total Bilirubin (0.2-1.0) mg/dL AST (15-37) U/L ALT (12-78) U/L Alkaline Phosphatase (46-116) U/L Lactate Dehydrogenase (85-227) U/L C-Reactive Protein (0.0-0.3) mg/dL Total Protein (6.4-8.2) g/dL Albumin (3.4-5.0) g/dL Globulin (2.3-3.5) g/dL Albumin/Globulin Ratio (1.2-2.2) Amylase (25-115) U/L Lipase (73-393) U/L Procalcitonin 0.27 ng/mL Urine Color (YELLOW) Urine Appearance (CLEAR) Urine pH (5.0-8.0) Ur Specific [place] (1.008-1.030) Urine Protein (NEGATIVE) mg/dL Urine Glucose (UA) (NEGATIVE) mg/dL Urine Ketones (NEGATIVE) mg/dL Urine Occult Blood (NEGATIVE) Urine Nitrite (NEGATIVE) Urine Bilirubin (NEGATIVE) Urine Urobilinogen (0.2-1.0) EU/dL Ur Leukocyte Esterase (NEGATIVE) Urine RBC (0-5) Urine WBC (0-5) Ur Epithelial Cells Amorphous Sediment Urine Bacteria Urine Mucus 08/02/21 08/02/21 08/02/21 Range/Units 19:38 19:38 23:41 WBC (4.5-11.0) K/uL RBC (4.30-5.90) M/uL Hgb (12.0-15.0) g/dL Hct (40.0-54.0) % MCV (80-98) fL MCH (27-31) pg MCHC (32-36) % Plt Count (150-400) K/uL Neut % (Auto) (36-66) % Lymph % (Auto) (24-44) % [place] % (Auto) (2-6) % Eos % (Auto) (2-4) % Baso % (Auto) (0-1) % PT 25.8 H (9.2-10.6) sec INR 2.6 D-Dimer, Quantitative (0.0-500.0) ng/mL Puncture Site ABG pH (7.350-7.450) ABG pCO2 (35.0-42.0) mmHg ABG pO2 (75.0-100.0) mmHg ABG HCO3 (22.0-26.0) mmol/L ABG Total CO2 (23.0-27.0) mmol/L ABG O2 Saturation (95.0-98.0) % ABG O2 Content (15.0-23.0) %vol ABG Base Excess mm/L ABG Hemoglobin (13.5-18.0) g/dL ABG Oxyhemoglobin % ABG Carboxyhemoglobin (0.0-1.6) % ABG Methemoglobin % Truong Test O2 Delivery Device Oxygen Flow Rate L Sodium (140-148) mmol/L Potassium (3.6-5.2) mmol/L Chloride (100-108) mmol/L Carbon Dioxide (21-32) mmol/L Anion Gap (5.0-14.0) mmol/L BUN (7-18) mg/dL Creatinine (0.8-1.3) mg/dL Est Cr Clr Drug Dosing mL/min Estimated GFR (MDRD) (>60) Glucose (74-106) mg/dL Lactic Acid (0.4-2.0) mmol/L Calcium (8.5-10.1) mg/dL Ferritin (8-388) ng/ml Total Bilirubin (0.2-1.0) mg/dL AST (15-37) U/L ALT (12-78) U/L Alkaline Phosphatase (46-116) U/L Lactate Dehydrogenase (85-227) U/L C-Reactive Protein (0.0-0.3) mg/dL Total Protein (6.4-8.2) g/dL Albumin (3.4-5.0) g/dL Globulin (2.3-3.5) g/dL Albumin/Globulin Ratio (1.2-2.2) Amylase 64 (25-115) U/L Lipase 111 (73-393) U/L Procalcitonin ng/mL Urine Color Yellow (YELLOW) Urine Appearance Clear (CLEAR) Urine pH 5.5 (5.0-8.0) Ur Specific [place] 1.015 (1.008-1.030) Urine Protein Negative (NEGATIVE) mg/dL Urine Glucose (UA) Negative (NEGATIVE) mg/dL Urine Ketones Negative (NEGATIVE) mg/dL Urine Occult Blood Trace-intact H (NEGATIVE) Urine Nitrite Negative (NEGATIVE) Urine Bilirubin Negative (NEGATIVE) Urine Urobilinogen 0.2 (0.2-1.0) EU/dL Ur Leukocyte Esterase Negative (NEGATIVE) Urine RBC 0-5 (0-5) Urine WBC 0-5 (0-5) Ur Epithelial Cells Rare Amorphous Sediment Not seen Urine Bacteria Few Urine Mucus Not seen 08/03/21 08/03/21 08/03/21 Range/Units 04:10 04:10 04:10 WBC 8.8 (4.5-11.0) K/uL RBC 4.35 (4.30-5.90) M/uL Hgb 13.1 (12.0-15.0) g/dL Hct 39.9 L (40.0-54.0) % MCV 92 (80-98) fL MCH 30 (27-31) pg MCHC 33 (32-36) % Plt Count 98 L (150-400) K/uL Neut % (Auto) 84.7 H (36-66) % Lymph % (Auto) 8.1 L (24-44) % [place] % (Auto) 7.1 H (2-6) % Eos % (Auto) 0.0 L (2-4) % Baso % (Auto) 0.1 (0-1) % PT 22.0 H (9.2-10.6) sec INR 2.2 D-Dimer, Quantitative (0.0-500.0) ng/mL Puncture Site ABG pH (7.350-7.450) ABG pCO2 (35.0-42.0) mmHg ABG pO2 (75.0-100.0) mmHg ABG HCO3 (22.0-26.0) mmol/L ABG Total CO2 (23.0-27.0) mmol/L ABG O2 Saturation (95.0-98.0) % ABG O2 Content (15.0-23.0) %vol ABG Base Excess mm/L ABG Hemoglobin (13.5-18.0) g/dL ABG Oxyhemoglobin % ABG Carboxyhemoglobin (0.0-1.6) % ABG Methemoglobin % Truong Test O2 Delivery Device Oxygen Flow Rate L Sodium 138 L (140-148) mmol/L Potassium 4.4 (3.6-5.2) mmol/L Chloride 101 (100-108) mmol/L Carbon Dioxide 28 (21-32) mmol/L Anion Gap 13.4 (5.0-14.0) mmol/L BUN 13 (7-18) mg/dL Creatinine 1.0 (0.8-1.3) mg/dL Est Cr Clr Drug Dosing 78.79 mL/min Estimated GFR (MDRD) > 60 (>60) Glucose 141 H (74-106) mg/dL Lactic Acid (0.4-2.0) mmol/L Calcium 8.6 (8.5-10.1) mg/dL Ferritin (8-388) ng/ml Total Bilirubin 0.9 (0.2-1.0) mg/dL AST 46 H (15-37) U/L ALT 42 (12-78) U/L Alkaline Phosphatase 105 (46-116) U/L Lactate Dehydrogenase (85-227) U/L C-Reactive Protein 7.79 H (0.0-0.3) mg/dL Total Protein 6.6 (6.4-8.2) g/dL Albumin 3.3 L (3.4-5.0) g/dL Globulin 3.3 (2.3-3.5) g/dL Albumin/Globulin Ratio 1.0 L (1.2-2.2) Amylase (25-115) U/L Lipase (73-393) U/L Procalcitonin ng/mL Urine Color (YELLOW) Urine Appearance (CLEAR) Urine pH (5.0-8.0) Ur Specific [place] (1.008-1.030) Urine Protein (NEGATIVE) mg/dL Urine Glucose (UA) (NEGATIVE) mg/dL Urine Ketones (NEGATIVE) mg/dL Urine Occult Blood (NEGATIVE) Urine Nitrite (NEGATIVE) Urine Bilirubin (NEGATIVE) Urine Urobilinogen (0.2-1.0) EU/dL Ur Leukocyte Esterase (NEGATIVE) Urine RBC (0-5) Urine WBC (0-5) Ur Epithelial Cells Amorphous Sediment Urine Bacteria Urine Mucus Med Orders - Current: Current Medications Acetaminophen (Acetaminophen 325 Mg Tab) 650 mg PO Q4H PRN PRN Reason: Fever Greater Than 101 Albuterol (Albuterol 8 Gm Inhaler) 0 gm INH Q2H PRN PRN Reason: Shortness of Breath Albuterol/Ipratropium (Albuterol/Ipratropium 4 Gm Inhalation [place]) 0 gm INH Q4H PRN PRN Reason: Dyspnea Dexamethasone (Dexamethasone 4 Mg/Ml Sdv) 6 mg IVPUSH Q24H COUNT INCLUDES THE [facility] Stop: 08/11/21 20:01 Doxycycline Hyclate (Doxycycline 100 Mg Cap) 100 mg PO Q12H COUNT INCLUDES THE [facility] Remdesivir 100 mg/ Sodium (Chloride) 100 mls @ 100 mls/hr IV Q24H COUNT INCLUDES THE [facility] Stop: 08/06/21 20:59 Doxycycline Hyclate 100 mg/ (Sodium Chloride) 100 mls @ 100 mls/hr IV Q12H COUNT INCLUDES THE [facility] Stop: 08/03/21 12:00 Last Admin: 08/03/21 09:02 Dose: 100 mls/hr Documented by: Lidocaine (Lidocaine 5% 700 Mg Patch) 700 mg TRDERM DAILY COUNT INCLUDES THE [facility] Last Admin: 08/03/21 08:59 Dose: 700 mg Documented by: Miscellaneous Information (Remove Patch) 1 ea TRDERM BEDTIME COUNT INCLUDES THE [facility] Nifedipine (Nifedipine 30 Mg Tab.Er) 30 mg PO DAILY COUNT INCLUDES THE [facility] Last Admin: 08/03/21 08:59 Dose: 30 mg Documented by: Oxycodone/Acetaminophen (Acetaminophen/Oxycodone 325-5 Mg Tab) 1 tab PO Q6H COUNT INCLUDES THE [facility] Rosuvastatin Calcium (Rosuvastatin 10 Mg Tab) 10 mg PO DAILY COUNT INCLUDES THE [facility] Last Admin: 08/03/21 08:59 Dose: 10 mg Documented by: Sertraline HCl (Sertraline 50 Mg Tab) 100 mg PO DAILY COUNT INCLUDES THE [facility] Last Admin: 08/03/21 08:59 Dose: 100 mg Documented by: Sodium Chloride (Sodium Chloride 0.9% 10 Ml Syringe) 10 ml FLUSH ASDIRECTED PRN PRN Reason: Keep Vein Open Warfarin Sodium (Warfarin 1 Mg Tab) 3 mg PO DAILY@1300 COUNT INCLUDES THE [facility] Discontinued Medications Dexamethasone (Dexamethasone 4 Mg/Ml Sdv) 6 mg IVPUSH DAILY COUNT INCLUDES THE [facility] Stop: 08/11/21 09:01 Last Admin: 08/02/21 20:04 Dose: 6 mg Documented by: Dexamethasone (Dexamethasone 2 Mg Tab) 6 mg PO DAILY COUNT INCLUDES THE [facility] Remdesivir 200 mg/ Sodium (Chloride) 250 mls @ 250 mls/hr IV ONETIME ONE Stop: 08/02/21 19:25 Last Admin: 08/02/21 20:05 Dose: 250 mls/hr Documented by: Remdesivir (Remdesivir) Confirm Administered Dose 100 mls @ as directed .ROUTE .STK-MED ONE Stop: 08/02/21 19:54 Last Admin: 08/02/21 20:06 Dose: Not Given Documented by: Doxycycline Hyclate 100 mg/ (Sodium Chloride) 100 mls @ 100 mls/hr IV Q12H COUNT INCLUDES THE [facility] Last Admin: 08/02/21 22:12 Dose: 100 mls/hr Documented by: Lidocaine (Lidocaine 5% 700 Mg Patch) 700 mg TRDERM Q24H COUNT INCLUDES THE [facility] Last Admin: 08/02/21 22:11 Dose: Not Given Documented by: Oxycodone/Acetaminophen (Acetaminophen/Oxycodone 325-5 Mg Tab) 1 tab PO Q6H COUNT INCLUDES THE [facility] Last Admin: 08/03/21 09:00 Dose: 1 tab Documented by: - Exam Quality Assessment: No: Supplemental Oxygen General: Alert, Oriented, Cooperative, No Acute Distress Lungs: Normal Respiratory Effort, Crackles (few both bases) Cardiovascular: Regular Rate, Regular Rhythm GI/Abdominal Exam: Soft, No Distention Psy/Mental Status: Alert, Normal Affect - Patient Data Lab Results Last 24 hrs: Laboratory Results - last 24 hr 08/02/21 08/02/21 08/02/21 Range/Units 19:04 19:04 19:04 WBC 8.3 (4.5-11.0) K/uL RBC 4.36 (4.30-5.90) M/uL Hgb 13.1 (12.0-15.0) g/dL Hct 39.9 L (40.0-54.0) % MCV 92 (80-98) fL MCH 30 (27-31) pg MCHC 33 (32-36) % Plt Count 100 L (150-400) K/uL Neut % (Auto) 82.4 H (36-66) % Lymph % (Auto) 6.8 L (24-44) % [place] % (Auto) 9.2 H (2-6) % Eos % (Auto) 1.2 L (2-4) % Baso % (Auto) 0.4 (0-1) % PT (9.2-10.6) sec INR D-Dimer, Quantitative 750.47 H (0.0-500.0) ng/mL Puncture Site ABG pH (7.350-7.450) ABG pCO2 (35.0-42.0) mmHg ABG pO2 (75.0-100.0) mmHg ABG HCO3 (22.0-26.0) mmol/L ABG Total CO2 (23.0-27.0) mmol/L ABG O2 Saturation (95.0-98.0) % ABG O2 Content (15.0-23.0) %vol ABG Base Excess mm/L ABG Hemoglobin (13.5-18.0) g/dL ABG Oxyhemoglobin % ABG Carboxyhemoglobin (0.0-1.6) % ABG Methemoglobin % [place]ong Test O2 Delivery Device Oxygen Flow Rate L Sodium 133 L (140-148) mmol/L Potassium 4.2 (3.6-5.2) mmol/L Chloride 97 L (100-108) mmol/L Carbon Dioxide 26 (21-32) mmol/L Anion Gap 14.2 H (5.0-14.0) mmol/L BUN 13 (7-18) mg/dL Creatinine 1.0 (0.8-1.3) mg/dL Est Cr Clr Drug Dosing 78.79 mL/min Estimated GFR (MDRD) > 60 (>60) Glucose 117 H (74-106) mg/dL Lactic Acid (0.4-2.0) mmol/L Calcium 8.3 L (8.5-10.1) mg/dL Ferritin 218 (8-388) ng/ml Total Bilirubin 1.2 H D (0.2-1.0) mg/dL AST 47 H (15-37) U/L ALT 38 (12-78) U/L Alkaline Phosphatase 102 (46-116) U/L Lactate Dehydrogenase 174 (85-227) U/L C-Reactive Protein 5.01 H (0.0-0.3) mg/dL Total Protein 6.8 (6.4-8.2) g/dL Albumin 3.6 (3.4-5.0) g/dL Globulin 3.2 (2.3-3.5) g/dL Albumin/Globulin Ratio 1.1 L (1.2-2.2) Amylase (25-115) U/L Lipase (73-393) U/L Procalcitonin ng/mL Urine Color (YELLOW) Urine Appearance (CLEAR) Urine pH (5.0-8.0) Ur Specific [place] (1.008-1.030) Urine Protein (NEGATIVE) mg/dL Urine Glucose (UA) (NEGATIVE) mg/dL Urine Ketones (NEGATIVE) mg/dL Urine Occult Blood (NEGATIVE) Urine Nitrite (NEGATIVE) Urine Bilirubin (NEGATIVE) Urine Urobilinogen (0.2-1.0) EU/dL Ur Leukocyte Esterase (NEGATIVE) Urine RBC (0-5) Urine WBC (0-5) Ur Epithelial Cells Amorphous Sediment Urine Bacteria Urine Mucus 08/02/21 08/02/21 08/02/21 Range/Units 19:04 19:04 19:21 WBC (4.5-11.0) K/uL RBC (4.30-5.90) M/uL Hgb (12.0-15.0) g/dL Hct (40.0-54.0) % MCV (80-98) fL MCH (27-31) pg MCHC (32-36) % Plt Count (150-400) K/uL Neut % (Auto) (36-66) % Lymph % (Auto) (24-44) % [place] % (Auto) (2-6) % Eos % (Auto) (2-4) % Baso % (Auto) (0-1) % PT (9.2-10.6) sec INR D-Dimer, Quantitative (0.0-500.0) ng/mL Puncture Site Rt brachial ABG pH 7.459 H (7.350-7.450) ABG pCO2 33.6 L (35.0-42.0) mmHg ABG pO2 60.5 L (75.0-100.0) mmHg ABG HCO3 23.5 (22.0-26.0) mmol/L ABG Total CO2 20.7 L (23.0-27.0) mmol/L ABG O2 Saturation 92.0 L (95.0-98.0) % ABG O2 Content 16.4 (15.0-23.0) %vol ABG Base Excess 0.6 mm/L ABG Hemoglobin 13.1 L (13.5-18.0) g/dL ABG Oxyhemoglobin 89.2 % ABG Carboxyhemoglobin 2.0 H (0.0-1.6) % ABG Methemoglobin 1.0 % Truong Test Not performed O2 Delivery Device Nasal cannula Oxygen Flow Rate 2.0 L Sodium (140-148) mmol/L Potassium (3.6-5.2) mmol/L Chloride (100-108) mmol/L Carbon Dioxide (21-32) mmol/L Anion Gap (5.0-14.0) mmol/L BUN (7-18) mg/dL Creatinine (0.8-1.3) mg/dL Est Cr Clr Drug Dosing mL/min Estimated GFR (MDRD) (>60) Glucose (74-106) mg/dL Lactic Acid 1.7 (0.4-2.0) mmol/L Calcium (8.5-10.1) mg/dL Ferritin (8-388) ng/ml Total Bilirubin (0.2-1.0) mg/dL AST (15-37) U/L ALT (12-78) U/L Alkaline Phosphatase (46-116) U/L Lactate Dehydrogenase (85-227) U/L C-Reactive Protein (0.0-0.3) mg/dL Total Protein (6.4-8.2) g/dL Albumin (3.4-5.0) g/dL Globulin (2.3-3.5) g/dL Albumin/Globulin Ratio (1.2-2.2) Amylase (25-115) U/L Lipase (73-393) U/L Procalcitonin 0.27 ng/mL Urine Color (YELLOW) Urine Appearance (CLEAR) Urine pH (5.0-8.0) Ur Specific [place] (1.008-1.030) Urine Protein (NEGATIVE) mg/dL Urine Glucose (UA) (NEGATIVE) mg/dL Urine Ketones (NEGATIVE) mg/dL Urine Occult Blood (NEGATIVE) Urine Nitrite (NEGATIVE) Urine Bilirubin (NEGATIVE) Urine Urobilinogen (0.2-1.0) EU/dL Ur Leukocyte Esterase (NEGATIVE) Urine RBC (0-5) Urine WBC (0-5) Ur Epithelial Cells Amorphous Sediment Urine Bacteria Urine Mucus 08/02/21 08/02/21 08/02/21 Range/Units 19:38 19:38 23:41 WBC (4.5-11.0) K/uL RBC (4.30-5.90) M/uL Hgb (12.0-15.0) g/dL Hct (40.0-54.0) % MCV (80-98) fL MCH (27-31) pg MCHC (32-36) % Plt Count (150-400) K/uL Neut % (Auto) (36-66) % Lymph % (Auto) (24-44) % [place] % (Auto) (2-6) % Eos % (Auto) (2-4) % Baso % (Auto) (0-1) % PT 25.8 H (9.2-10.6) sec INR 2.6 D-Dimer, Quantitative (0.0-500.0) ng/mL Puncture Site ABG pH (7.350-7.450) ABG pCO2 (35.0-42.0) mmHg ABG pO2 (75.0-100.0) mmHg ABG HCO3 (22.0-26.0) mmol/L ABG Total CO2 (23.0-27.0) mmol/L ABG O2 Saturation (95.0-98.0) % ABG O2 Content (15.0-23.0) %vol ABG Base Excess mm/L ABG Hemoglobin (13.5-18.0) g/dL ABG Oxyhemoglobin % ABG Carboxyhemoglobin (0.0-1.6) % ABG Methemoglobin % Truong Test O2 Delivery Device Oxygen Flow Rate L Sodium (140-148) mmol/L Potassium (3.6-5.2) mmol/L Chloride (100-108) mmol/L Carbon Dioxide (21-32) mmol/L Anion Gap (5.0-14.0) mmol/L BUN (7-18) mg/dL Creatinine (0.8-1.3) mg/dL Est Cr Clr Drug Dosing mL/min Estimated GFR (MDRD) (>60) Glucose (74-106) mg/dL Lactic Acid (0.4-2.0) mmol/L Calcium (8.5-10.1) mg/dL Ferritin (8-388) ng/ml Total Bilirubin (0.2-1.0) mg/dL AST (15-37) U/L ALT (12-78) U/L Alkaline Phosphatase (46-116) U/L Lactate Dehydrogenase (85-227) U/L C-Reactive Protein (0.0-0.3) mg/dL Total Protein (6.4-8.2) g/dL Albumin (3.4-5.0) g/dL Globulin (2.3-3.5) g/dL Albumin/Globulin Ratio (1.2-2.2) Amylase 64 (25-115) U/L Lipase 111 (73-393) U/L Procalcitonin ng/mL Urine Color Yellow (YELLOW) Urine Appearance Clear (CLEAR) Urine pH 5.5 (5.0-8.0) Ur Specific [place] 1.015 (1.008-1.030) Urine Protein Negative (NEGATIVE) mg/dL Urine Glucose (UA) Negative (NEGATIVE) mg/dL Urine Ketones Negative (NEGATIVE) mg/dL Urine Occult Blood Trace-intact H (NEGATIVE) Urine Nitrite Negative (NEGATIVE) Urine Bilirubin Negative (NEGATIVE) Urine Urobilinogen 0.2 (0.2-1.0) EU/dL Ur Leukocyte Esterase Negative (NEGATIVE) Urine RBC 0-5 (0-5) Urine WBC 0-5 (0-5) Ur Epithelial Cells Rare Amorphous Sediment Not seen Urine Bacteria Few Urine Mucus Not seen 08/03/21 08/03/21 08/03/21 Range/Units 04:10 04:10 04:10 WBC 8.8 (4.5-11.0) K/uL RBC 4.35 (4.30-5.90) M/uL Hgb 13.1 (12.0-15.0) g/dL Hct 39.9 L (40.0-54.0) % MCV 92 (80-98) fL MCH 30 (27-31) pg MCHC 33 (32-36) % Plt Count 98 L (150-400) K/uL Neut % (Auto) 84.7 H (36-66) % Lymph % (Auto) 8.1 L (24-44) % [place] % (Auto) 7.1 H (2-6) % Eos % (Auto) 0.0 L (2-4) % Baso % (Auto) 0.1 (0-1) % PT 22.0 H (9.2-10.6) sec INR 2.2 D-Dimer, Quantitative (0.0-500.0) ng/mL Puncture Site ABG pH (7.350-7.450) ABG pCO2 (35.0-42.0) mmHg ABG pO2 (75.0-100.0) mmHg ABG HCO3 (22.0-26.0) mmol/L ABG Total CO2 (23.0-27.0) mmol/L ABG O2 Saturation (95.0-98.0) % ABG O2 Content (15.0-23.0) %vol ABG Base Excess mm/L ABG Hemoglobin (13.5-18.0) g/dL ABG Oxyhemoglobin % ABG Carboxyhemoglobin (0.0-1.6) % ABG Methemoglobin % [place] Test O2 Delivery Device Oxygen Flow Rate L Sodium 138 L (140-148) mmol/L Potassium 4.4 (3.6-5.2) mmol/L Chloride 101 (100-108) mmol/L Carbon Dioxide 28 (21-32) mmol/L Anion Gap 13.4 (5.0-14.0) mmol/L BUN 13 (7-18) mg/dL Creatinine 1.0 (0.8-1.3) mg/dL Est Cr Clr Drug Dosing 78.79 mL/min Estimated GFR (MDRD) > 60 (>60) Glucose 141 H (74-106) mg/dL Lactic Acid (0.4-2.0) mmol/L Calcium 8.6 (8.5-10.1) mg/dL Ferritin (8-388) ng/ml Total Bilirubin 0.9 (0.2-1.0) mg/dL AST 46 H (15-37) U/L ALT 42 (12-78) U/L Alkaline Phosphatase 105 (46-116) U/L Lactate Dehydrogenase (85-227) U/L C-Reactive Protein 7.79 H (0.0-0.3) mg/dL Total Protein 6.6 (6.4-8.2) g/dL Albumin 3.3 L (3.4-5.0) g/dL Globulin 3.3 (2.3-3.5) g/dL Albumin/Globulin Ratio 1.0 L (1.2-2.2) Amylase (25-115) U/L Lipase (73-393) U/L Procalcitonin ng/mL Urine Color (YELLOW) Urine Appearance (CLEAR) Urine pH (5.0-8.0) Ur Specific [place] (1.008-1.030) Urine Protein (NEGATIVE) mg/dL Urine Glucose (UA) (NEGATIVE) mg/dL Urine Ketones (NEGATIVE) mg/dL Urine Occult Blood (NEGATIVE) Urine Nitrite (NEGATIVE) Urine Bilirubin (NEGATIVE) Urine Urobilinogen (0.2-1.0) EU/dL Ur Leukocyte Esterase (NEGATIVE) Urine RBC (0-5) Urine WBC (0-5) Ur Epithelial Cells Amorphous Sediment Urine Bacteria Urine Mucus Result Diagrams: 08/03/21 04:10 08/03/21 04:10 Sepsis Event Note - Evaluation Sepsis Screening Result: No Definite Risk - Focused Exam Vital Signs: Vital Signs Temp Pulse Resp BP BP Pulse Ox 08/03/21 10:05 36.7 C 75 18 108/47 L 96 08/03/21 08:59 104/63 08/03/21 07:47 93 L 08/03/21 07:00 36.7 C 50 L 18 104/63 96 08/03/21 04:09 36.9 C 61 16 123/84 96 08/03/21 03:32 36.3 C 68 17 97 08/03/21 01:04 98 - Problem List Review Problem List Initiated/Reviewed/Updated: Yes - My Orders Last 24 Hours: My Active Orders 08/03/21 11:55 Cardiac Monitoring [RC] .As Directed 08/03/21 11:56 CRP [C-REACTIVE PROTEIN] [CHEM] Timed D-DIMER QUANTITATIVE [COAG] Timed 08/03/21 11:57 Acetaminophen/oxyCODONE [Percocet 325-5 MG] 2 tab PO Q4H PRN 08/03/21 20:00 dexAMETHasone 6 mg PO Q24H 08/03/21 21:00 Doxycycline [Vibramycin] 100 mg PO Q12H 08/04/21 05:00 COMPREHENSIVE METABOLIC PN,CMP [CHEM] Timed INR,PT,PROTHROMBIN TIME [COAG] Timed - Plan Plan:: ASSESSMENT AND PLAN - COVID-19 pneumonia-complicated acute respiratory failure with hypoxia. CRP and D-dimer have risen since admission. Clinically he feels better. Hypoxic and dyspneic with any activity. -Covid precautions and isolation -Prone ventilation as possible -Dexamethasone 6 mg po daily -Coumadin 3 mg. po daily -Albuterol inhaler 2 puffs every 4 hours as needed for shortness of breath -IV Remdesivir x5 days -oxygen therapy to keep oxygen saturation >95% -Repeat labs including CRP and D-dimer in the morning CARDIOVASCULAR DISEASE-stable and asymptomatic. -continue home medications LEFT RIB FRACTURE-significant pain with coughing. -Hydrocodone 5-325 mg po every 4 to 6 hours as needed for pain -Lidocaine patch for comfort HISTORY OF PE - report history of PE about 20 years ago- Coumadin daily. Follow by Pulmonology in [place]. -continue Coumadin 3 mg daily MAINTENANCE ISSUES -DVT prophylaxis - Coumadin 3 mg daily -GI prophylaxis; not indicated -[place] catheter; not indicated -Nutrition - regular diet DISPOSITION-anticipate discharge to home after the hospital stay. Jean-Claude Blake M.D.
[2021-08-03] MEDS: Acetaminophen/oxyCODONE 325-5 MG Tab PO PRN ×3 (13:43→22:48)
[2021-08-03] MEDS ORDERED: Acetaminophen/oxyCODONE 325-5 MG Tab PO SCH (16:00)
[2021-08-03] MEDS ORDERED: REMDESIVIR 100 MG in Sodium Chloride 0.9% 100 ML IV SCH (20:00)
[2021-08-03] MEDS ORDERED: Dexamethasone 4 MG/ML SDV IVPUSH SCH (20:00)
[2021-08-03] MEDS ORDERED: Doxycycline 100 MG Cap PO SCH (21:00)
[2021-08-04] MEDS: Acetaminophen/oxyCODONE 325-5 MG Tab PO PRN ×2 (06:01→14:17)
[2021-08-04] MEDS: Lidocaine 5% 700 MG Patch TRDERM SCH (08:27)
[2021-08-04] MEDS: Rosuvastatin 10 MG Tab PO SCH (08:27)
[2021-08-04] MEDS: Sertraline 50 MG Tab PO SCH (08:27)
[2021-08-04] MEDS: NIFEdipine 30 MG Tab.ER PO SCH (08:27)
--- NOTE | 2021-08-07 18:42 | PCM.DCSUM1 ---
Discharge Summary - Hospital Course Free Text/Narrative:: Mr. Mauro is a 65-year-old male who had presented to the emergency department complaining of shortness of breath, body ache, and increased thirst. He was also complaining of rib pain secondary to a fall that had happened 3 days prior to admission. He had been in the ER the night prior to admission and diagnosed with COVID-19 and a subacute rib fracture was seen on chest x-ray likely due to the fall he had had 3 days prior. He had been scheduled for treatment with Regeneron the monoclonal antibody at 1400 the day of admission. He did receive that dose however afterwards he ended up coming back to the emergency department due to increasing symptoms. He was treated with dexamethasone, Coumadin 3 mg for anticoagulation, and started on remdesivir. He stated that he had the Moderna vaccine when he was home in [place]. 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 He wanted to go home prior to finishing remdesivir treatment as he was feeling significantly better by the morning after receiving the monoclonal antibody. Him and his had been planning to go home to [place] the day of discharge. He was counseled on making sure he gets up and walks with car breaks every 2 hours to prevent blood clotting. He only received 2 days of remdesivir. Diagnosis: Stroke: No Modified [place] Scale: No Signif.Disability Despite Sympt.Able to Carry Out Usual Act./Duties Modified [place] Scale Score: 1 - Discharge Data Discharge Date: 08/04/21 Discharge Disposition: Home, Self-Care 01 Condition: Stable - Referral to Home Health Primary Care Physician: PCP None - Discharge Plan Home Medications: Home Meds Azithromycin [Zithromax] 250 mg PO DAILY 08/01/21 [History] Dextroamphetamine/Amphetamine [Dextroamp-Amphet ER 20 mg Cap] 20 mg PO DAILY 08/01/21 [History] NIFEdipine [Nifedipine ER] 30 mg PO DAILY 08/01/21 [History] Rosuvastatin [Crestor] 10 mg PO DAILY 08/01/21 [History] Sertraline [Zoloft] 100 mg PO DAILY 08/01/21 [History] Warfarin [Coumadin] 3 mg PO DAILY 08/01/21 [History] oxyCODONE HCl/Acetaminophen [Oxycodone-Acetaminophen 5-325] 1 each PO Q6H 08/01/21 [History] Patient Handouts: Hypoxia, COVID-19 Forms: ED Department Discharge Referrals: PCP,None [Primary Care Provider] - - Discharge Summary/Plan Comment DC Time >30 min.: No Total # of Minutes for Discharge Time: 30 - General Info Date of Service: 08/04/21 Admission Dx/Problem (Free Text: Admission Diagnosis/Problem Admission Diagnosis/Problem Pneumonia due to COVID-19 Subjective Update: Mr. Mauro was feeling significantly better on the day that I saw him and was excited to go home. I did explain the pluses and minuses of not getting the full dose of remdesivir. He stated understanding. He stated that with the Moderna vaccine, the monoclonal antibody, and the loading dose of remdesivir he felt like that was plenty for him to be able to fight the Covid virus as he was feeling so much better on the day of discharge. - Review of Systems General: Reports: No Symptoms HEENT: Reports: No Symptoms Pulmonary: Reports: No Symptoms Cardiovascular: Reports: No Symptoms Gastrointestinal: Reports: No Symptoms Genitourinary: Reports: No Symptoms Musculoskeletal: Reports: Other (Some mild rib pain) Skin: Reports: No Symptoms Neurological: Reports: No Symptoms Psychiatric: Reports: No Symptoms - Patient Data Vitals - Most Recent: Last Vital Signs Temp 97.5 F 08/04/21 14:18 Pulse 85 08/04/21 14:18 Resp 19 08/04/21 14:18 BP 105/58 L 08/04/21 14:18 Pulse Ox 91 L 08/04/21 14:18 Weight - Most Recent: 191 lb 4.792 oz DEEPA Results - Last 24 hrs: Microbiology 08/02/21 20:43 Aerobic Blood Culture - Preliminary Blood - Venous - Lab Draw NO GROWTH AFTER 4 DAYS Anaerobic Blood Culture - Preliminary NO GROWTH AFTER 4 DAYS 08/02/21 20:30 Aerobic Blood Culture - Preliminary Blood - Venous NO GROWTH AFTER 4 DAYS Anaerobic Blood Culture - Preliminary NO GROWTH AFTER 4 DAYS Med Orders - Current: Current Medications Discontinued Medications Acetaminophen (Acetaminophen 325 Mg Tab) 650 mg PO Q4H PRN PRN Reason: Fever Greater Than 101 Albuterol (Albuterol 8 Gm Inhaler) 0 gm INH Q2H PRN PRN Reason: Shortness of Breath Albuterol/Ipratropium (Albuterol/Ipratropium 4 Gm Inhalation [place]) 0 gm INH Q4H PRN PRN Reason: Dyspnea Dexamethasone (Dexamethasone 4 Mg/Ml Sdv) 6 mg IVPUSH DAILY [facility] Stop: 08/11/21 09:01 Last Admin: 08/02/21 20:04 Dose: 6 mg Documented by: Dexamethasone (Dexamethasone 2 Mg Tab) 6 mg PO DAILY [facility] Dexamethasone (Dexamethasone 4 Mg/Ml Sdv) 6 mg IVPUSH Q24H [facility] Stop: 08/11/21 20:01 Dexamethasone (Dexamethasone 2 Mg Tab) 6 mg PO Q24H [facility] Last Admin: 08/03/21 19:42 Dose: 6 mg Documented by: Doxycycline Hyclate (Doxycycline 100 Mg Cap) 100 mg PO Q12H [facility] Remdesivir 200 mg/ Sodium (Chloride) 250 mls @ 250 mls/hr IV ONETIME ONE Stop: 08/02/21 19:25 Last Admin: 08/02/21 20:05 Dose: 250 mls/hr Documented by: Remdesivir (Remdesivir) Confirm Administered Dose 100 mls @ as directed .ROUTE .ST-MED ONE Stop: 08/02/21 19:54 Last Admin: 08/02/21 20:06 Dose: Not Given Documented by: Doxycycline Hyclate 100 mg/ (Sodium Chloride) 100 mls @ 100 mls/hr IV Q12H [facility] Last Admin: 08/02/21 22:12 Dose: 100 mls/hr Documented by: Remdesivir 100 mg/ Sodium (Chloride) 100 mls @ 100 mls/hr IV Q24H [facility] Stop: 08/06/21 20:59 Last Admin: 08/03/21 19:42 Dose: 100 mls/hr Documented by: Doxycycline Hyclate 100 mg/ (Sodium Chloride) 100 mls @ 100 mls/hr IV Q12H [facility] Stop: 08/03/21 12:00 Last Admin: 08/03/21 09:02 Dose: 100 mls/hr Documented by: Lidocaine (Lidocaine 5% 700 Mg Patch) 700 mg TRDERM Q24H [facility] Last Admin: 08/02/21 22:11 Dose: Not Given Documented by: Lidocaine (Lidocaine 5% 700 Mg Patch) 700 mg TRDERM DAILY [facility] Last Admin: 08/04/21 08:27 Dose: 700 mg Documented by: Miscellaneous Information (Remove Patch) 1 ea TRDERM BEDTIME [facility] Last Admin: 08/03/21 21:23 Dose: Not Given Documented by: Nifedipine (Nifedipine 30 Mg Tab.Er) 30 mg PO DAILY [facility] Last Admin: 08/04/21 08:27 Dose: 30 mg Documented by: Oxycodone/Acetaminophen (Acetaminophen/Oxycodone 325-5 Mg Tab) 1 tab PO Q6H [facility] Last Admin: 08/03/21 09:00 Dose: 1 tab Documented by: Oxycodone/Acetaminophen (Acetaminophen/Oxycodone 325-5 Mg Tab) 1 tab PO Q6H [facility] Oxycodone/Acetaminophen (Acetaminophen/Oxycodone 325-5 Mg Tab) 2 tab PO Q4H PRN PRN Reason: Pain Last Admin: 08/04/21 14:17 Dose: 2 tab Documented by: Rosuvastatin Calcium (Rosuvastatin 10 Mg Tab) 10 mg PO DAILY [facility] Last Admin: 08/04/21 08:27 Dose: 10 mg Documented by: Sertraline HCl (Sertraline 50 Mg Tab) 100 mg PO DAILY [facility] Last Admin: 08/04/21 08:27 Dose: 100 mg Documented by: Sodium Chloride (Sodium Chloride 0.9% 10 Ml Syringe) 10 ml FLUSH ASDIRECTED PRN PRN Reason: Keep Vein Open Warfarin Sodium (Warfarin 1 Mg Tab) 3 mg PO DAILY@1300 [facility] Last Admin: 08/04/21 14:17 Dose: 3 mg Documented by: - Exam General: Reports: Alert, Oriented HEENT: Reports: Pupils Equal, EOMI, Mucous Membr. Moist/[place] Neck: Reports: Supple Lungs: Reports: Clear to Auscultation, Normal Respiratory Effort Cardiovascular: Reports: Regular Rate, Regular Rhythm GI/Abdominal Exam: Normal Bowel Sounds, Soft, Non-Tender, No Organomegaly, No Distention, No Abnormal Bruit, No Mass Back Exam: Reports: Normal Inspection, Full Range of Motion Extremities: Normal Inspection, Normal Range of Motion, Non-Tender, No Pedal Edema Skin: Reports: Warm, Dry, Intact Neurological: Reports: No New Focal Deficit Psy/Mental Status: Reports: Alert, Normal Affect, Normal Mood
== END 2021-08-04 17:09 | disposition home or self-care (01) | DRG 177 ==
LOC: JP.ED 17:37 → JP.2SS 20:26
PROVIDERS: ADMIT Internal Medicine; ATTEND Internal Medicine
PROC: XW033G6 Introduction of REGN-COV2 Monoclonal Antibody into Peripheral Vein, Percutaneous Approach, New Technology Group 6 (ICD-10-PCS; principal; 2021-08-02)
PROC: 8E0ZXY6 Isolation (ICD-10-PCS; 2021-08-02)
PROC: 3E0DX3Z Introduction of Anti-inflammatory into Mouth and Pharynx, External Approach (ICD-10-PCS; 2021-08-02)
PROC: XW033E5 Introduction of Remdesivir Anti-infective into Peripheral Vein, Percutaneous Approach, New Technology Group 5 (ICD-10-PCS; 2021-08-02)
DX: U07.1 COVID-19 (principal); J12.89 Other viral pneumonia; R09.02 Hypoxemia; J12.82 Pneumonia due to coronavirus disease 2019; J96.01 Acute respiratory failure with hypoxia; S22.32XD Fracture of one rib, left side, subsequent encounter for fracture with routine healing; X58.XXXD Exposure to other specified factors, subsequent encounter; F32.9 Major depressive disorder, single episode, unspecified; Z85.820 Personal history of malignant melanoma of skin; Z79.01 Long term (current) use of anticoagulants; Z79.899 Other long term (current) drug therapy; E78.00 Pure hypercholesterolemia, unspecified; Z86.711 Personal history of pulmonary embolism; Z87.01 Personal history of pneumonia (recurrent); M19.90 Unspecified osteoarthritis, unspecified site; Z85.828 Personal history of other malignant neoplasm of skin; Z86.19 Personal history of other infectious and parasitic diseases; F17.210 Nicotine dependence, cigarettes, uncomplicated
CPT/HCPCS: 36415; 36600; 71045 ×2; 80053; 82150; 82728; 82803; 83605; 83615; 83690; 84145; 85025; 85379; 85610; 86140; J1100; J7050; 81001; 87040; 94762; 99285-25; A9270-GY; J3490; J8540

== ENCOUNTER 2025-03-24 07:29 | Inpatient (IN) | payer MEDICARE ==
[2025-03-24 08:21] LABS: BASOPHILS ABSOLUTE AUTO 0.08 K/uL (0.00-0.10); BASOPHILS PERCENT AUTO 0.5 % (0.1-1.3); EOSINOPHILS PERCENT AUTO 0.1 % (0.0-5.4); HEMATOCRIT 42.1 % (38.4-49.7); IMMATURE GRAN ABSOLUTE AUTO 0.11 K/uL (0.00-0.23); IMMATURE GRAN PERCENT AUTO 0.7 % (0.0-0.7); LYMPHOCYTES ABSOLUTE AUTO 0.78 K/uL (0.8-3.3); LYMPHOCYTES PERCENT AUTO 4.8 % (11.4-47.7); MEAN CORPUSCULAR HEMOGLOBIN 30.2 pg (31.6-35.5); MEAN CORPUSCULAR HGB CONC 33.3 g/dL (31.6-35.5); MEAN CORPUSCULAR VOLUME 90.7 fL (81.4-99.0); MONOCYTES ABSOLUTE AUTO 1.36 K/uL (0.20-0.90); MONOCYTES PERCENT AUTO 8.4 % (3.3-12.6); NEUTROPHILS ABSOLUTE AUTO 13.79 K/uL (1.0-7.6); NEUTROPHILS PERCENT AUTO 85.5 % (40.0-78.1); PLATELET COUNT,PLT 98 K/uL (130-375); RED BLOOD CELL COUNT 4.64 M/uL (4.14-5.76); WHITE BLOOD CELL COUNT,WBC 16.1 K/uL (3.2-11.0)
[2025-03-24 08:41] LABS: ALBUMIN 3.4 g/dL (3.4-5.0); BLOOD UREA NITROGEN,BUN 23 mg/dL (7-18); CALCIUM 8.9 mg/dL (8.5-10.1); CARBON DIOXIDE,CO2 22 mmol/L (21-32); CHLORIDE,CL 101 mmol/L (100-108); ESTIMATED GFR 80 mL/min (>60); GLUCOSE RANDOM 117 mg/dL (74-106); POTASSIUM,K 3.7 mmol/L (3.6-5.2); PROTEIN TOTAL,TP 6.6 g/dL (6.4-8.2); SODIUM,NA 132 mmol/L (140-148)
[2025-03-24 08:42] LABS: A/G RATIO 1.1 (1.2-2.2); ALANINE AMINOTRANSFERASE,ALT 36 U/L (12-78); ALKALINE PHOSPHATASE 104 U/L (46-116); ASPARTATE AMNIOTRANSFERASE,AST 57 U/L (15-37); BILIRUBIN TOTAL 1.3 mg/dL (0.2-1.0); C-REACTIVE PROTEIN 1.69 mg/dL (<0.50)
[2025-03-24 08:43] LABS: ANION GAP 12.7 mmol/L (5.0-14.0); EOSINOPHILS ABSOLUTE AUTO 0.02 K/uL (0.00-0.40)
[2025-03-24 08:47] LABS: LACTIC ACID 1.5 mmol/L (0.4-2.0)
[2025-03-24] MEDS: Iopamidol 612 MG/ML 100 ML Bottle IV SCH (09:17)
[2025-03-24] MEDS: Sodium Chloride 0.9% 10 ML Syringe FLUSH ONE (09:17)
[2025-03-24] MEDS: Sodium Chloride 0.9% 100 ML IV SCH (09:17)
[2025-03-24] MEDS: Sodium Chloride 0.9% 500 ML IV ONE (09:24)
[2025-03-24] MEDS: Acetaminophen 500 MG Tab PO ONE (09:24)
[2025-03-24] MEDS: cefTRIAXone 2 GM in Sodium Chloride 0.9% 50 ML IV ONE (09:52)
[2025-03-24] MEDS ORDERED: Ondansetron 4 MG Tab.DIS PO PRN (13:28)
[2025-03-24] MEDS ORDERED: Magnesium Hydroxide 400 MG/5 ML Susp 30 ML Cup PO PRN (13:28)
[2025-03-24] MEDS ORDERED: Sennosides/Docusate Sodium 50-8.6 MG Tab PO PRN (13:28)
[2025-03-24] MEDS ORDERED: Ondansetron 4 MG/2 ML SDV IV PRN (13:28)
[2025-03-24 13:38] LABS: INR 2.1; PROTHROMBIN TIME 21.2 sec (9.2-10.6)
[2025-03-24] MEDS: Sodium Chloride 0.9% 1,000 ML IV SCH ×2 (14:20→19:38)
[2025-03-24] MEDS: Warfarin** 1 MG TABLET PO ONE (17:24)
[2025-03-24] MEDS: Acetaminophen 325 MG Tab PO PRN (18:10)
[2025-03-24] MEDS ORDERED: Ibuprofen 400 MG Tab PO PRN (19:30)
[2025-03-24] MEDS: Acetaminophen/oxyCODONE 325-5 MG Tab PO PRN (19:30)
[2025-03-24] MEDS: Lactobacillus Rhamnosus GG (Probiotic) Cap PO SCH (21:57)
[2025-03-24] MEDS: VANCOmycin 1.25 GM in Sodium Chloride 0.9% 250 ML IV SCH (22:01)
[2025-03-25 05:44] LABS: HEMATOCRIT 40.2 % (38.4-49.7); HEMOGLOBIN 13.2 g/dL (12.9-16.9); MEAN CORPUSCULAR HEMOGLOBIN 30.1 pg (31.6-35.5); MEAN CORPUSCULAR HGB CONC 32.8 g/dL (31.6-35.5); MEAN CORPUSCULAR VOLUME 91.8 fL (81.4-99.0); RED BLOOD CELL COUNT 4.38 M/uL (4.14-5.76); WHITE BLOOD CELL COUNT,WBC 10.2 K/uL (3.2-11.0)
[2025-03-25 05:56] LABS: INR 1.8; PROTHROMBIN TIME 17.7 sec (9.2-10.6)
[2025-03-25 05:59] LABS: C-REACTIVE PROTEIN 14.33 mg/dL (<0.50); CALCIUM 8.4 mg/dL (8.5-10.1); EST CRCL DRUG DOSING (CG) 74.37 mL/min; POTASSIUM,K 4.2 mmol/L (3.6-5.2); VANCOMYCIN RANDOM 17.6 ug/mL (0.0-50.0)
[2025-03-25 06:06] LABS: ANION GAP 12.2 mmol/L (5.0-14.0)
[2025-03-25] MEDS: Pantoprazole 40 MG Tab.CR PO SCH (06:59)
[2025-03-25] MEDS ORDERED: DEXTROAMPHETAMINE PO SCH (09:00)
[2025-03-25] MEDS ORDERED: Non-Formulary Medication 1 Each (Sertraline [Zoloft] 100 MG Tablet) PO SCH (09:00)
[2025-03-25] MEDS ORDERED: [UNRECOGNIZED DRUG - OTHER] PO SCH (09:00)
[2025-03-25] MEDS ORDERED: AMPHETAMINE PO SCH (09:00)
[2025-03-25] MEDS: Lisinopril 10 MG Tab PO SCH (09:17)
[2025-03-25] MEDS: Sertraline 50 MG Tab PO SCH (09:18)
[2025-03-25] MEDS: Furosemide 20 MG Tab PO SCH (09:18)
[2025-03-25] MEDS: NIFEdipine 30 MG Tab.ER PO SCH (09:21)
[2025-03-25] MEDS: Amphetamine/Dextroamphetamine Salts 10 MG Cap.ER PO SCH (09:25)
[2025-03-25] MEDS: cefTRIAXone 2 GM in Sodium Chloride 0.9% 50 ML IV SCH (10:00)
[2025-03-25] MEDS ORDERED: Ibuprofen 400 MG Tab PO PRN (10:02)
[2025-03-25] MEDS: VANCOmycin 1 GM in Sodium Chloride 0.9% 250 ML IV SCH (11:02)
[2025-03-25] MEDS: Sodium Chloride 0.9% 1,000 ML IV SCH (19:00)
[2025-03-26 06:05] LABS: HEMATOCRIT 37.3 % (38.4-49.7); HEMOGLOBIN 12.3 g/dL (12.9-16.9); MEAN CORPUSCULAR HEMOGLOBIN 30.1 pg (31.6-35.5); MEAN CORPUSCULAR VOLUME 91.2 fL (81.4-99.0); RED BLOOD CELL COUNT 4.09 M/uL (4.14-5.76); WHITE BLOOD CELL COUNT,WBC 7.9 K/uL (3.2-11.0)
[2025-03-26 06:22] LABS: C-REACTIVE PROTEIN 11.29 mg/dL (<0.50); CALCIUM 8.2 mg/dL (8.5-10.1); CREATININE 0.9 mg/dL (0.8-1.3); EST CRCL DRUG DOSING (CG) 82.63 mL/min; POTASSIUM,K 3.6 mmol/L (3.6-5.2)
[2025-03-26 06:24] LABS: ANION GAP 10.6 mmol/L (5.0-14.0)
[2025-03-26] MEDS ORDERED: fentaNYL 100 MCG/2 ML SDV ONE (07:30)
[2025-03-26] MEDS ORDERED: Midazolam 1 MG/ML 2 ML SDV ONE (07:30)
[2025-03-26] MEDS ORDERED: Propofol 200 MG/20 ML SDV ONE (07:30)
[2025-03-26] MEDS: Bupivacaine 0.5%/EPINEPHrine 1:200,000 50 ML MDV ONE (10:31)
[2025-03-26] MEDS: Lidocaine 1% 50 ML MDV ONE (10:31)
[2025-03-26] MEDS ORDERED: Lactated Ringers 1,000 ML ONE (10:49)
[2025-03-27 06:07] LABS: HEMATOCRIT 36.9 % (38.4-49.7); HEMOGLOBIN 12.2 g/dL (12.9-16.9); MEAN CORPUSCULAR HEMOGLOBIN 30.3 pg (31.6-35.5); MEAN CORPUSCULAR HGB CONC 33.1 g/dL (31.6-35.5); MEAN CORPUSCULAR VOLUME 91.8 fL (81.4-99.0); RED BLOOD CELL COUNT 4.02 M/uL (4.14-5.76); WHITE BLOOD CELL COUNT,WBC 7.1 K/uL (3.2-11.0)
[2025-03-27 06:27] LABS: A/G RATIO 0.7 (1.2-2.2); ALANINE AMINOTRANSFERASE,ALT 30 U/L (12-78); ALBUMIN 2.5 g/dL (3.4-5.0); ALKALINE PHOSPHATASE 109 U/L (46-116); ASPARTATE AMNIOTRANSFERASE,AST 22 U/L (15-37); BILIRUBIN TOTAL 0.5 mg/dL (0.2-1.0); BLOOD UREA NITROGEN,BUN 17 mg/dL (7-18); C-REACTIVE PROTEIN 5.76 mg/dL (<0.50); CARBON DIOXIDE,CO2 24 mmol/L (21-32); CHLORIDE,CL 106 mmol/L (100-108); CREATININE 0.8 mg/dL (0.8-1.3); EST CRCL DRUG DOSING (CG) 92.96 mL/min; ESTIMATED GFR 95 mL/min (>60); GLUCOSE RANDOM 99 mg/dL (74-106); POTASSIUM,K 3.3 mmol/L (3.6-5.2); PROTEIN TOTAL,TP 5.9 g/dL (6.4-8.2); SODIUM,NA 137 mmol/L (140-148)
[2025-03-27 06:30] LABS: ANION GAP 10.3 mmol/L (5.0-14.0)
[2025-03-27] MEDS: Potassium Chloride 20 MEQ Tab.ER PO SCH (08:28)
[2025-03-27] MEDS: Ibuprofen 600 MG Tab PO PRN (11:28)
[2025-03-27] MEDS: Warfarin 5 MG Tab PO ONE (15:11)
[2025-03-27] MEDS: Piperacillin/Tazobactam 4.5 GM in Sodium Chloride 0.9% 100 ML IV ONE (15:12)
[2025-03-27] MEDS: Piperacillin/Tazobactam/Dext 4.5 GM in Premix Bag 1 BAG IV SCH (19:34)
[2025-03-28 05:53] LABS: HEMATOCRIT 38.1 % (38.4-49.7); HEMOGLOBIN 12.3 g/dL (12.9-16.9); MEAN CORPUSCULAR HGB CONC 32.3 g/dL (31.6-35.5); MEAN CORPUSCULAR VOLUME 92.9 fL (81.4-99.0); RED BLOOD CELL COUNT 4.1 M/uL (4.14-5.76); WHITE BLOOD CELL COUNT,WBC 5.2 K/uL (3.2-11.0)
[2025-03-28 06:06] LABS: INR 1.4; PROTHROMBIN TIME 14.4 sec (9.2-10.6)
[2025-03-28 06:22] LABS: A/G RATIO 0.8 (1.2-2.2); ALANINE AMINOTRANSFERASE,ALT 27 U/L (12-78); ALBUMIN 2.6 g/dL (3.4-5.0); ALKALINE PHOSPHATASE 105 U/L (46-116); ASPARTATE AMNIOTRANSFERASE,AST 19 U/L (15-37); BILIRUBIN TOTAL 0.5 mg/dL (0.2-1.0); BLOOD UREA NITROGEN,BUN 17 mg/dL (7-18); C-REACTIVE PROTEIN 2.93 mg/dL (<0.50); CALCIUM 8.5 mg/dL (8.5-10.1); CARBON DIOXIDE,CO2 25 mmol/L (21-32); CHLORIDE,CL 106 mmol/L (100-108); CREATININE 1.1 mg/dL (0.8-1.3); EST CRCL DRUG DOSING (CG) 67.61 mL/min; ESTIMATED GFR 72 mL/min (>60); GLUCOSE RANDOM 91 mg/dL (74-106); PROTEIN TOTAL,TP 5.9 g/dL (6.4-8.2); SODIUM,NA 138 mmol/L (140-148)
[2025-03-28] MEDS: Amoxicillin/Clavulanate K 875-125 MG Tab PO ONE (09:17)
[2025-03-28] MEDS ORDERED: Warfarin 5 MG Tab PO ONE (13:00)
== END 2025-03-28 13:06 | disposition home or self-care (01) | DRG 857 ==
LOC: JP.ED 07:29 → JP.2SS 12:03
PROVIDERS: ADMIT Internal Medicine; ATTEND Hospitalist
PROC: 0Y950ZZ Drainage of Right Inguinal Region, Open Approach (ICD-10-PCS; principal; 2025-03-26 11:40)
DX: T81.41XA Infection following a procedure, superficial incisional surgical site, initial encounter (principal); C85.18 Unspecified B-cell lymphoma, lymph nodes of multiple sites; L03.314 Cellulitis of groin; I50.32 Chronic diastolic (congestive) heart failure; L02.214 Cutaneous abscess of groin; E78.00 Pure hypercholesterolemia, unspecified; M19.90 Unspecified osteoarthritis, unspecified site; F32.A Depression, unspecified; B96.20 Unspecified Escherichia coli [E. coli] as the cause of diseases classified elsewhere; H91.90 Unspecified hearing loss, unspecified ear; I25.10 Atherosclerotic heart disease of native coronary artery without angina pectoris; E87.6 Hypokalemia; I11.0 Hypertensive heart disease with heart failure; Z88.2 Allergy status to sulfonamides; Z86.711 Personal history of pulmonary embolism; Z88.6 Allergy status to analgesic agent; Z87.81 Personal history of (healed) traumatic fracture; Z85.828 Personal history of other malignant neoplasm of skin; Z85.820 Personal history of malignant melanoma of skin; Z88.8 Allergy status to other drugs, medicaments and biological substances; Z79.01 Long term (current) use of anticoagulants; Z79.899 Other long term (current) drug therapy; Z86.718 Personal history of other venous thrombosis and embolism; Z97.4 Presence of external hearing-aid; Z87.01 Personal history of pneumonia (recurrent)
CPT/HCPCS: 36415; 74177; 80053; 83605; 85025; 85610; 86140; 87040 ×2; 96365; 96367; 99284; A9270; J0696; J7040; J7050; Q9967; 00400-QZ; 80048; 80202; 85027; 87070; 87075; 87077; 87186; 87205; 99222; 99231; 99232; 99239; J2003; J2250; J2543; J2704; J3010; J3490; J7030; J7120